=== PATIENT | female | born 1970 | race Caucasian/White ===

== ENCOUNTER 2023-10-24 14:37 | Emergency (ER) | payer MEDICAID, MEDICARE ==
[~2023-10-24] VITALS: Ht 142.2 cm; Wt 56.8 kg
[2023-10-24 14:53] VITALS: BP 95/62; PULSE 80; RESP 12; TEMP 97.8
[2023-10-24] MEDS ORDERED: ACET-66 PO (17:05)
[2023-10-24] MEDS ORDERED: CEPH-558 PO (17:05)
[2023-10-24] MEDS: CEPHALEXIN MONOHYDRATE 500 MG CAPSULE PO ONE (17:14)
== END 2023-10-24 17:26 | disposition home or self-care (01) ==
LOC: EMS 14:37
DX: L03.113 Cellulitis of right upper limb (principal); R56.9 Unspecified convulsions; Q90.9 Down syndrome, unspecified
CPT/HCPCS: 99283

== ENCOUNTER 2024-01-18 11:13 | Inpatient (IN) | payer MEDICARE ==
[~2024-01-18] VITALS: Ht 167.6 cm; Wt 49.2 kg
[~2024-01-18 11:13] MED LIST: ACET-66 PO; CEPH-558 PO
[2024-01-18] MEDS: LORazepam 2 MG/ML VIAL IM ONE (14:45)
[2024-01-18] MEDS: HALOPERIDOL LACTATE 5 MG/ML VIAL IM ONE (14:46)
[2024-01-18] MEDS: DiphenhydrAMINE HCL 50 MG/ML VIAL IM ONE (14:46)
[2024-01-18 16:40] LABS: PH,URINE DRUG SCREEN 5.5 (5.0-8.0)
[2024-01-18 16:44] LABS: ALCOHOL, URINE DRUG SCREEN NEGATIVE (NEGATIVE); AMPHET/METH SCREEN,URINE POSITIVE (NEGATIVE); BARBITURATE SCREEN, URINE NEGATIVE (NEGATIVE); BENZODIAZEPINES SCREEN,URINE POSITIVE (NEGATIVE); CANNABINOID SCREEN,URINE NEGATIVE (NEGATIVE); COCAINE SCREEN,URINE NEGATIVE (NEGATIVE); METHADONE SCREEN, URINE NEGATIVE (NEGATIVE); OPIATE SCREEN,URINE NEGATIVE (NEGATIVE); PHENCYCLIDINE SCREEN,URINE NEGATIVE (NEGATIVE)
[2024-01-18 17:08] LABS: BASOPHILS % (AUTO) 0.7 % (0.0-2.0); EOSINOPHILS % (AUTO) 0.8 % (1.0-6.0); HEMATOCRIT 35.3 % (36-46); HEMOGLOBIN 11.6 g/dL (12.0-16.0); LYMPHOCYTES % (AUTO) 10.1 % (22.0-44.0); MEAN CORPUSCULAR HEMOGLOBIN 33.3 pg (26.0-34.0); MEAN CORPUSCULAR HGB CONC 32.9 G/dL (31.0-37.0); MEAN CORPUSCULAR VOLUME 101 fL (80-100); MONOCYTES # (AUTO) 0.7 K/uL (0.1-1.0); NEUTROPHILS # (AUTO) 8.2 K/uL (1.8-7.7); NEUTROPHILS % (AUTO) 81.4 % (40.0-70.0); PLATELET COUNT (AUTO) 284 K/uL (150-450); RED BLOOD CELL COUNT(AUTO) 3.48 MIL/uL (4.00-5.20); RED CELL DISTRIBUTION WIDTH 13.1 % (11.5-14.5); WHITE BLOOD COUNT (AUTO) 10.1 K/uL (4.5-11.0)
[2024-01-18 17:10] LABS: COVID AG,FIA SOURCE NASAL SWAB
[2024-01-18 17:18] LABS: CALCIUM, TOTAL 8.3 mg/dL (8.8-10.5); CREATININE 1.12 mg/dL (0.60-1.30); POTASSIUM 3.4 mmol/L (3.5-5.1)
[2024-01-18 17:28] LABS: SARS-COV2 (COVID) ANTIGEN,FIA Negative (Negative)
[2024-01-18 17:48] LABS: APPEARANCE,URINE TURBID (CLEAR); BILIRUBIN,URINE NEGATIVE (NEGATIVE); COLOR,URINE ORANGE (YELLOW); GLUCOSE, URINE (UA) NEGATIVE (NEGATIVE); KETONES,URINE NEGATIVE (NEGATIVE); LEUKOCYTE ESTERASE ,URINE NEGATIVE (NEGATIVE); NITRATE,URINE NEGATIVE (NEGATIVE); OCCULT BLOOD,URINE NEGATIVE (NEGATIVE); PH,URINE 5.5 (5.0-8.0); PROTEIN,URINE 30-70 mg/dL (NEGATIVE); SPECIFIC GRAVITIY, URINE 1.028 (1.003-1.030); UROBILINOGEN,URINE <=1.0 mg/dL (<=1.0)
[2024-01-18] MEDS ORDERED: SIMV-260 PO (18:55)
[2024-01-18] MEDS ORDERED: POLY17PO47 PO (18:55)
[2024-01-18] MEDS ORDERED: MELA5TAB40 PO (18:55)
[2024-01-18] MEDS ORDERED: ALPR-707 PO (18:55)
[2024-01-18] MEDS ORDERED: QUET300T5 PO (18:55)
[2024-01-18] MEDS ORDERED: MEMA5TAB41 PO (18:55)
[2024-01-18] MEDS ORDERED: DONE-52 PO (18:55)
[2024-01-18] MEDS ORDERED: GABA-1181 PO (18:55)
[2024-01-18] MEDS ORDERED: BRIV50TA PO (18:58)
[2024-01-18] MEDS ORDERED: LORazepam 2 MG TABLET PO PRN (23:45)
[2024-01-19] MEDS: LORazepam 2 MG/ML VIAL IM ONE ×2 (03:51→04:48)
[2024-01-19] MEDS: DiphenhydrAMINE HCL 50 MG/ML VIAL IM ONE ×2 (03:51→04:48)
[2024-01-19] MEDS: HALOPERIDOL LACTATE 5 MG/ML VIAL IM ONE (04:48)
[2024-01-19 04:53] VITALS: BP 114/64; PULSE 100; RESP 16; TEMP 97.1; O2SAT 100
[2024-01-19] MEDS ORDERED: BENZOCAINE/MENTHOL LOZENGE PO PRN (07:15)
[2024-01-19] MEDS ORDERED: BACITRACIN 28 GM OINTMENT TP PRN (07:15)
[2024-01-19] MEDS ORDERED: ONDANSETRON 4 MG TABLET PO PRN (07:15)
[2024-01-19] MEDS ORDERED: CloNIDine HCL 0.1 MG TABLET PO PRN (07:15)
[2024-01-19] MEDS ORDERED: LOPERAMIDE HCL 2 MG CAPSULE PO PRN (07:15)
[2024-01-19] MEDS ORDERED: DOCUSATE SODIUM 100 MG CAPSULE PO PRN (07:15)
[2024-01-19] MEDS ORDERED: PETROLATUM,WHITE 28 GM JELLY TP PRN (07:15)
[2024-01-19] MEDS ORDERED: MAG HYDROX/ALUMINUM HYD/SIMETH ES 30 ML SUSPENSION UDCUP PO PRN (07:15)
[2024-01-19] MEDS ORDERED: ACETAMINOPHEN 325 MG TABLET PO PRN (07:15)
[2024-01-19] MEDS ORDERED: MAGNESIUM HYDROXIDE SUSPENSION 30 ML UDCUP PO PRN (07:15)
[2024-01-19] MEDS ORDERED: MELATONIN 5 MG TABLET PO PRN (07:15)
[2024-01-19] MEDS ORDERED: ALBUTEROL SULFATE HFA 90 MCG/PUFF 8 GM INHALER IH PRN (07:15)
[2024-01-19] MEDS ORDERED: OMEPRAZOLE 20 MG CAPSULE PO PRN (07:15)
[2024-01-19 08:20] VITALS: RESP 16
[2024-01-19] MEDS: POTASSIUM CHLORIDE 20 MEQ ER TABLET PO ONE (08:35)
[2024-01-19] MEDS: GABAPENTIN 300 MG CAPSULE PO SCH (08:36)
[2024-01-19] MEDS: SIMVASTATIN 20 MG TABLET PO SCH (08:36)
[2024-01-19] MEDS: MEMANTINE HCL 5 MG TABLET PO SCH (09:00)
[2024-01-19] MEDS ORDERED: [UNRECOGNIZED DRUG - OTHER] PO SCH (09:00)
[2024-01-19 16:30] VITALS: BP 138/83; PULSE 89; RESP 18; TEMP 97.8; O2SAT 97
[2024-01-19 20:16] LABS: GLUCOMETER DEV NAME(LOC) BV2X.3; GLUCOSE,POINT OF CARE 87 MG/DL (70-110)
[2024-01-19] MEDS: DONEPEZIL HCL 5 MG TABLET PO SCH (20:31)
[2024-01-19 20:57] VITALS: BP 116/69; PULSE 85; RESP 16; TEMP 97.3; O2SAT 95
[2024-01-20] MEDS: IBUPROFEN 600 MG TABLET PO PRN (07:25)
[2024-01-20 07:27] VITALS: BP 125/63; PULSE 93; RESP 18; TEMP 97.7; O2SAT 99
[2024-01-20 08:26] VITALS: RESP 17
[2024-01-20] MEDS: HALOPERIDOL 5 MG TABLET PO PRN (08:28)
[2024-01-20] MEDS: LORazepam 2 MG TABLET PO PRN (08:28)
[2024-01-20] MEDS: CloNIDine HCL 0.1 MG TABLET PO SCH (08:29)
[2024-01-20] MEDS: GABAPENTIN 300 MG CAPSULE PO SCH (08:55)
[2024-01-20] MEDS ORDERED: LORazepam 2 MG/ML VIAL ONE (19:08)
[2024-01-20] MEDS: ChlorproMAZINE HCL 50 MG/2 ML AMP IM ONE (19:38)
[2024-01-20] MEDS: DiphenhydrAMINE HCL 50 MG/ML VIAL IM ONE (19:38)
[2024-01-20] MEDS: LORazepam 2 MG/ML VIAL IM ONE (19:38)
[2024-01-20 20:09] VITALS: BP 91/56; PULSE 91; RESP 18; TEMP 98.2; O2SAT 96
[2024-01-20] MEDS: QUEtiapine FUMARATE 200 MG TABLET PO SCH (21:00)
[2024-01-20] MEDS: DOCUSATE SODIUM 100 MG CAPSULE PO SCH (21:00)
[2024-01-20] MEDS: DONEPEZIL HCL 5 MG TABLET PO SCH (21:00)
[2024-01-20] MEDS: MELATONIN 5 MG TABLET PO SCH (21:00)
[2024-01-21 00:14] VITALS: BP 140/80; PULSE 66; RESP 18; TEMP 97.5; O2SAT 100
[2024-01-21 09:26] VITALS: RESP 18; TEMP 98
[2024-01-21] MEDS: VALPROIC ACID 250 MG/5 ML SOLUTION UDCUP PO SCH (10:37)
[2024-01-21 16:04] VITALS: BP 96/59; PULSE 77; RESP 18; TEMP 98.2; O2SAT 96
[2024-01-21 20:35] VITALS: RESP 18; O2SAT 98
[2024-01-22] MEDS: LORazepam 1 MG TABLET PO PRN (08:23)
[2024-01-22 10:31] VITALS: BP 99/68; PULSE 78; RESP 18; TEMP 98; O2SAT 96
[2024-01-22 12:25] LABS: APPEARANCE,URINE HAZY (CLEAR); BILIRUBIN,URINE NEGATIVE (NEGATIVE); COLOR,URINE YELLOW (YELLOW); GLUCOSE, URINE (UA) NEGATIVE (NEGATIVE); LEUKOCYTE ESTERASE ,URINE TRACE (NEGATIVE); NITRATE,URINE NEGATIVE (NEGATIVE); OCCULT BLOOD,URINE NEGATIVE (NEGATIVE); PROTEIN,URINE 30-70 mg/dL (NEGATIVE); SPECIFIC GRAVITIY, URINE 1.026 (1.003-1.030)
[2024-01-22 13:01] LABS: BACTERIA,URINE Many /HPF (None Seen); RBC,URINE 0-2 /HPF (0-2); SQUAMOUS EPITHELIAL CELL,UR Moderate /LPF (None Seen); WBC,URINE 0-2 /HPF (0-5)
[2024-01-22] MEDS: CEPHALEXIN MONOHYDRATE 500 MG CAPSULE PO SCH (17:45)
[2024-01-22 20:02] VITALS: BP 101/62; PULSE 68; RESP 18; TEMP 97.4; O2SAT 98
[2024-01-22] MEDS: ZOLPIDEM TARTRATE 10 MG TABLET PO PRN (21:35)
[2024-01-23 11:37] VITALS: BP 110/70; PULSE 76; RESP 18; TEMP 97.6; O2SAT 92
[2024-01-23 20:37] VITALS: BP 114/76; PULSE 96; RESP 18; TEMP 97.6; O2SAT 98
[2024-01-23] MEDS: VALPROIC ACID 250 MG/5 ML SOLUTION UDCUP PO SCH (21:00)
[2024-01-23] MEDS: MEMANTINE HCL 10 MG TABLET PO SCH (21:00)
[2024-01-23] MEDS: DONEPEZIL HCL 10 MG TABLET PO SCH (21:00)
[2024-01-24 08:30] VITALS: BP 100/68; PULSE 78; RESP 18; TEMP 97.5; O2SAT 98
[2024-01-24] MEDS ORDERED: GABAPENTIN 300 MG CAPSULE PO SCH (09:00)
[2024-01-24] MEDS: GABAPENTIN 300 MG CAPSULE PO SCH ×2 (10:38→21:00)
[2024-01-24] MEDS: VALPROIC ACID 250 MG/5 ML SOLUTION UDCUP PO SCH (10:40)
[2024-01-24] MEDS ORDERED: ALEN70TA80 PO (11:32)
[2024-01-24 21:47] VITALS: BP 105/71; PULSE 74; RESP 18; TEMP 97.7; O2SAT 98
[2024-01-25 08:35] VITALS: BP 97/57; PULSE 79; RESP 17; O2SAT 98
[2024-01-25 22:19] VITALS: TEMP 97.5
[2024-01-26 09:10] VITALS: TEMP 98
[2024-01-26] MEDS: QUEtiapine FUMARATE 25 MG TABLET PO SCH (09:46)
[2024-01-26 20:31] VITALS: TEMP 97.4
[2024-01-27 11:11] VITALS: BP 113/54; PULSE 74; RESP 18; TEMP 97.5; O2SAT 97
[2024-01-27 22:23] VITALS: BP 93/59; PULSE 81; RESP 18; TEMP 98.4; O2SAT 98
[2024-01-28 11:24] VITALS: BP 97/65; PULSE 69; RESP 18; TEMP 97.8; O2SAT 99
[2024-01-28] MEDS ORDERED: MELA5TAB40 PO (17:13)
[2024-01-28] MEDS ORDERED: MEMA10TA24 PO (17:13)
[2024-01-28] MEDS ORDERED: QUET200T30 PO (17:13)
[2024-01-28] MEDS ORDERED: DONE-51 PO (17:13)
[2024-01-28] MEDS ORDERED: GABA-1181 PO ×2 (17:13→22:25)
[2024-01-28] MEDS ORDERED: VALP250S23 PO ×2 (17:13)
[2024-01-28 18:40] LABS: GLUCOMETER DEV NAME(LOC) 3E.I 2; GLUCOSE,POINT OF CARE 134 MG/DL (70-110)
[2024-01-28] MEDS ORDERED: PROPOFOL 1000 MG/ISO-OSM 100 ML ONE (18:44)
[2024-01-28] MEDS: NOREPINEPHRINE 8 MG/0.9 % NACL 250 ML IV PRN (19:07)
[2024-01-28] MEDS: PROPOFOL 1000 MG/ISO-OSM 100 ML IV PRN (19:08)
[2024-01-28 19:26] LABS: ABG BASE EXCESS -6.4 mmol/L (-2.0-3.0); ABG CARBOXYHEMOGLOBIN 0.3 % (0.5-1.5); ABG HCO3 19.4 mmol/L (21.0-28.0); ABG METHEMOGLOBIN 0.9 % (0.0-1.5); ABG OXYGEN CONTENT 15.9 mL/dL (15.0-23.0); ABG OXYGEN SATURATION 99.4 % (94.0-98.0); ABG OXYHEMOGLOBIN 98.2 % (94.0-98.0); ABG PCO2 45 mmHg (32.0-45.0); ABG PH 7.275 (7.350-7.450); ABG TOTAL HEMOGLOBIN 11.2 G/dL (12.0-16.0); SOURCE, BLOOD GAS ARTERIAL; TEMPERATURE, FAHRENHEIT, BG 98.6 FAHREN (96.0-98.6)
[2024-01-28 19:27] LABS: ALLEN TEST, BLOOD GAS Positive; O2 DEVICE,BLOOD GAS VENTILATOR (ROOM AIR); PEEP,BG 5 cm H2O; PO2, ARTERIAL BG 187.2 mmHg (83.0-108.0); SITE, BLOOD GAS RT RADIAL; VT, ABG 350 ml
[2024-01-28 19:28] LABS: EOSINOPHILS % (AUTO) 0.2 % (1.0-6.0); HEMATOCRIT 38.3 % (36-46); HEMOGLOBIN 11.8 g/dL (12.0-16.0); LYMPHOCYTES # (AUTO) 3.3 K/uL (1.0-4.8); LYMPHOCYTES % (AUTO) 21.2 % (22.0-44.0); MEAN CORPUSCULAR HEMOGLOBIN 32.3 pg (26.0-34.0); MEAN CORPUSCULAR HGB CONC 30.8 G/dL (31.0-37.0); MEAN CORPUSCULAR VOLUME 105 fL (80-100); MONOCYTES # (AUTO) 0.6 K/uL (0.1-1.0); MONOCYTES % (AUTO) 3.5 % (2.0-9.0); NEUTROPHILS # (AUTO) 11.6 K/uL (1.8-7.7); NEUTROPHILS % (AUTO) 74.1 % (40.0-70.0); PLATELET COUNT (AUTO) 231 K/uL (150-450); RED BLOOD CELL COUNT(AUTO) 3.65 MIL/uL (4.00-5.20); RED CELL DISTRIBUTION WIDTH 14.1 % (11.5-14.5); WHITE BLOOD COUNT (AUTO) 15.6 K/uL (4.5-11.0)
[2024-01-28 19:37] VITALS: PULSE 94; RESP 19; O2SAT 99
[2024-01-28 19:38] VITALS: PULSE 94; RESP 19; O2SAT 99
[2024-01-28 19:46] LABS: CALCIUM, TOTAL 8.5 mg/dL (8.8-10.5); CREATININE 1.47 mg/dL (0.60-1.30)
[2024-01-28 19:47] LABS: B-TYPE NATRIURETIC PEPTIDE < 5 pg/mL (0-100); LACTIC ACID 6.7 mmol/L (0.4-2.0)
[2024-01-28 19:48] LABS: TROPONIN I-HIGH SENSITIVITY 102 ng/L (<51)
[2024-01-28] MEDS: SODIUM CHLORIDE 0.9% 1,000 ML IV ONE (19:54)
[2024-01-28 19:55] LABS: LIPASE 21 U/L (16-77)
[2024-01-28] MEDS ORDERED: FentaNYL CIT 1000MCG/0.9% NACL 100 ML IV PRN ×2 (20:15→21:15)
[2024-01-28] MEDS ORDERED: VECURONIUM BROMIDE 10 MG/VIAL IVP ONE (20:15)
[2024-01-28] MEDS ORDERED: RINGERS SOLUTION,LACTATED 1,500 ML IV ONE (21:15)
[2024-01-28] MEDS ORDERED: ACETAMINOPHEN 325 MG TABLET PO PRN (21:15)
[2024-01-28] MEDS ORDERED: MIDAZOLAM HCL 2 MG/2 ML VIAL IVP PRN (21:15)
[2024-01-28] MEDS ORDERED: LORazepam 2 MG/ML VIAL IVP PRN (21:15)
[2024-01-28] MEDS ORDERED: IPRATROPIUM BROMIDE 0.5 MG/2.5 ML NEB SOLUTION NEB PRN (21:15)
[2024-01-28] MEDS ORDERED: ALBUTEROL SULFATE 2.5 MG/0.5 ML NEB SOLUTION NEB PRN (21:15)
[2024-01-28 21:35] VITALS: BP 139/84; PULSE 81; RESP 18; TEMP 97.4; O2SAT 100
[2024-01-28 21:36] LABS: MAGNESIUM 2.8 mg/dL (1.80-2.40)
[2024-01-28] MEDS ORDERED: CHLORHEXIDINE GLUCONATE 2% TOWELETTE [2'S/6'S] TP SCH (22:00)
[2024-01-28] MEDS ORDERED: PIPERACILLIN/TAZO 3.375 GM/D5W 50 ML IV SCH (22:00)
[2024-01-28] MEDS ORDERED: INSULIN LISPRO 100 UNITS/ML SQ PRN (22:00)
[2024-01-28] MEDS ORDERED: DEXTROSE 50%-WATER 25 GM/50 ML SYRINGE IVP PRN (22:00)
[2024-01-29] MEDS ORDERED: VALPROIC ACID 250 MG/5 ML SOLUTION UDCUP PO SCH (09:00)
[2024-01-30] MEDS ORDERED: HEPARIN SODIUM,PORCINE 5,000 UNITS/ML VIAL SQ SCH
== END 2024-01-28 18:30 | disposition short-term general hospital (02) | DRG 885 ==
LOC: EMS 11:13 → B3A 01-19 04:17 → B2X 01-19 10:35 → 3EX 01-21 00:35
PROVIDERS: ADMIT Psychiatry & Neurology Psychiatry; ATTEND Psychiatry & Neurology Psychiatry
PROC: GZ56ZZZ Individual Psychotherapy, Supportive (ICD-10-PCS; principal; 2024-01-25)
DX: F20.9 Schizophrenia, unspecified (principal); N17.9 Acute kidney failure, unspecified; F70 Mild intellectual disabilities; I46.9 Cardiac arrest, cause unspecified; F29 Unspecified psychosis not due to a substance or known physiological condition; F41.9 Anxiety disorder, unspecified; G47.00 Insomnia, unspecified; R62.50 Unspecified lack of expected normal physiological development in childhood; E78.5 Hyperlipidemia, unspecified; K59.00 Constipation, unspecified; Z20.822 Contact with and (suspected) exposure to COVID-19; E87.6 Hypokalemia; Q90.9 Down syndrome, unspecified; F32.A Depression, unspecified; K42.9 Umbilical hernia without obstruction or gangrene; F15.10 Other stimulant abuse, uncomplicated; F90.9 Attention-deficit hyperactivity disorder, unspecified type; Z91.199 Patient's noncompliance with other medical treatment and regimen due to unspecified reason; Z79.899 Other long term (current) drug therapy
CPT/HCPCS: 36600; 51701; 51702; 70450; 71045; 74176; 80048; 80164; 80307; 81001; 81003; 82805; 82962; 83605; 83690; 83735; 83880; 84132; 84145; 84484; 85025; 85379; 87040; 87086; 87186; 92610; 93005; 94002; 99285; G0378; G0480; J1200; J1630; J2060; J2704; J3010; J3230; J3490; J7030; 36415-L1; 36415-TC

== ENCOUNTER 2024-01-28 21:48 | Inpatient (IN) | payer MEDICARE ==
[~2024-01-28] VITALS: Ht 167.6 cm; Wt 58.6 kg
[2024-01-28 19:00] VITALS: PULSE 88; RESP 19; O2SAT 100; O2SAT 99
[~2024-01-28 21:48] MED LIST changes: +ALEN70TA80 PO; +ALPR-707 PO; +BRIV50TA PO; -CEPH-558 PO; +DONE-51 PO; +DONE-52 PO; +GABA-1181 PO; +MELA5TAB40 PO; +MEMA10TA24 PO; +MEMA5TAB41 PO; +POLY17PO47 PO; +QUET200T30 PO; +QUET300T5 PO; +SIMV-260 PO; +VALP250S23 PO
[2024-01-28] MEDS ORDERED: GABA-1181 PO (22:25)
[2024-01-28] MEDS ORDERED: MELATONIN 5 MG TABLET PO PRN ×2 (22:30)
[2024-01-28] MEDS ORDERED: ALBUTEROL SULFATE 2.5 MG/0.5 ML NEB SOLUTION NEB PRN (22:30)
[2024-01-28] MEDS ORDERED: MIDAZOLAM HCL 100 MG in SODIUM CHLORIDE 0.9% 180 ML IV PRN (22:30)
[2024-01-28] MEDS ORDERED: IPRATROPIUM BROMIDE 0.5 MG/2.5 ML NEB SOLUTION NEB PRN (22:30)
[2024-01-28] MEDS ORDERED: ASPIRIN 300 MG RECTAL SUPPOSITORY PR ONE (22:45)
[2024-01-28] MEDS ORDERED: PROPOFOL 1000 MG/ISO-OSM 100 ML ONE (22:45)
[2024-01-28 22:50] VITALS: PULSE 101; RESP 18; O2SAT 100
[2024-01-28] MEDS ORDERED: SODIUM CHLORIDE 0.9% 100 ML ONE (22:58)
[2024-01-28] MEDS ORDERED: IOHEXOL 350 MG/ML 100 ML VIAL ONE (22:59)
[2024-01-29] VITALS (14 sets, daily range): BP systolic 85–176; BP diastolic 42–79; PULSE 59–111; RESP 14–29; TEMP 91.5–97.5; O2SAT 84–100
[2024-01-29] MEDS ORDERED: HEPARIN SODIUM,PORCINE 5,000 UNITS/ML VIAL SQ SCH
[2024-01-29] MEDS ORDERED: SODIUM CHLORIDE 0.9% 250 ML IV ONE (00:35)
[2024-01-29 00:36] LABS: BASOPHILS % (AUTO) 0.1 % (0.0-2.0); EOSINOPHILS % (AUTO) 0.1 % (1.0-6.0); HEMATOCRIT 42.9 % (36-46); HEMOGLOBIN 13.4 g/dL (12.0-16.0); LYMPHOCYTES # (AUTO) 1.1 K/uL (1.0-4.8); LYMPHOCYTES % (AUTO) 5.4 % (22.0-44.0); MEAN CORPUSCULAR HEMOGLOBIN 32.1 pg (26.0-34.0); MEAN CORPUSCULAR HGB CONC 31.1 G/dL (31.0-37.0); MEAN CORPUSCULAR VOLUME 103 fL (80-100); MONOCYTES # (AUTO) 1.6 K/uL (0.1-1.0); MONOCYTES % (AUTO) 7.8 % (2.0-9.0); NEUTROPHILS # (AUTO) 18.1 K/uL (1.8-7.7); PLATELET COUNT (AUTO) 320 K/uL (150-450); RED BLOOD CELL COUNT(AUTO) 4.16 MIL/uL (4.00-5.20); RED CELL DISTRIBUTION WIDTH 13.8 % (11.5-14.5); WHITE BLOOD COUNT (AUTO) 20.9 K/uL (4.5-11.0)
[2024-01-29 00:37] LABS: NEUTROPHILS % (AUTO) 86.6 % (40.0-70.0)
[2024-01-29] MEDS: RINGERS SOLUTION,LACTATED 1,550 ML IV ONE (00:43)
[2024-01-29] MEDS: LevETIRAcetam 1,000 MG in DEXTROSE 5%-WATER 100 ML IV ONE (00:44)
[2024-01-29 00:51] LABS: INR 1.1 (0.9-1.1); PROTHROMBIN TIME 11.8 SEC (9.4-11.6)
[2024-01-29 01:20] LABS: TROPONIN I-HIGH SENSITIVITY 10654 ng/L (<51)
[2024-01-29] MEDS: PIPERACILLIN/TAZO 3.375 GM/D5W 50 ML IV SCH (01:37)
[2024-01-29] MEDS: ETHYL ALCOHOL 62% ANTISEPTIC NASAL SANITIZER 0.6 ML AMPUL NASAL SCH (01:38)
[2024-01-29] MEDS: CHLORHEXIDINE GLUCONATE 0.12% 15 ML UDCUP ORAL RINSE MM SCH (01:38)
[2024-01-29] MEDS: PANTOPRAZOLE SODIUM 80 MG in SODIUM CHLORIDE 0.9% 100 ML IV SCH (01:38)
[2024-01-29] MEDS: HEPARIN SODIUM,PORCINE 5,000 UNITS/ML VIAL IVP ONE (02:02)
[2024-01-29] MEDS: HEPARIN SODIUM 25000 UNITS/D5W 250 ML IV PRN (02:08)
[2024-01-29] MEDS: NOREPINEPHRINE 8 MG/0.9 % NACL 250 ML IV PRN (03:53)
[2024-01-29 04:24] LABS: RBC MORPHOLOGY COMMENT ABNORMAL RBC MORPH
[2024-01-29 05:38] LABS: ABG BASE EXCESS -1.9 mmol/L (-2.0-3.0); ABG METHEMOGLOBIN 0.3 % (0.0-1.5); ABG OXYGEN CONTENT 18.5 mL/dL (15.0-23.0); ABG OXYGEN SATURATION 98.2 % (94.0-98.0); ABG OXYHEMOGLOBIN 97.9 % (94.0-98.0); ABG PCO2 56 mmHg (32.0-45.0); ABG PH 7.267 (7.350-7.450); ABG TOTAL HEMOGLOBIN 13.3 G/dL (12.0-16.0); SOURCE, BLOOD GAS ARTERIAL; TEMPERATURE, FAHRENHEIT, BG 93.2 FAHREN (96.0-98.6)
[2024-01-29 05:39] LABS: ALLEN TEST, BLOOD GAS Positive; O2 DEVICE,BLOOD GAS VENTILATOR (ROOM AIR); PO2, ARTERIAL BG 120.8 mmHg (83.0-108.0); SITE, BLOOD GAS RT RADIAL
[2024-01-29 05:40] LABS: PEEP,BG 5 cm H2O; VT, ABG 350 ml
[2024-01-29] MEDS: ALENDRONATE SODIUM 70 MG TABLET PO SCH (05:48)
[2024-01-29 07:17] LABS: ALBUMIN 2.3 g/dL (3.4-5.0); BILIRUBIN,TOTAL 0.3 mg/dL (0.1-1.0); CREATININE 1.08 mg/dL (0.60-1.30); PHOSPHORUS 4.4 mg/dL (2.5-4.9); POTASSIUM 5.8 mmol/L (3.5-5.1); TOTAL PROTEIN, SERUM 6.8 g/dL (6.4-8.2)
[2024-01-29 07:22] LABS: TROPONIN I-HIGH SENSITIVITY 9462 ng/L (<51)
[2024-01-29] MEDS: FentaNYL CIT 1000MCG/0.9% NACL 100 ML IV PRN (08:10)
[2024-01-29] MEDS: DEXTROSE 50%-WATER 25 GM/50 ML SYRINGE IVP ONE ×2 (08:47→12:31)
[2024-01-29] MEDS: INSULIN REGULAR, HUMAN 100 UNITS/ML IVP ONE (08:48)
[2024-01-29] MEDS ORDERED: [UNRECOGNIZED DRUG - OTHER] PO SCH (09:00)
[2024-01-29] MEDS: VALPROIC ACID 250 MG/5 ML SOLUTION UDCUP PO SCH (09:00)
[2024-01-29] MEDS: GABAPENTIN 300 MG CAPSULE PO SCH (09:00)
[2024-01-29] MEDS ORDERED: MEMANTINE HCL 5 MG TABLET PO SCH (09:00)
[2024-01-29] MEDS: LevETIRAcetam 500 MG TABLET PO SCH (09:00)
[2024-01-29] MEDS: MEMANTINE HCL 10 MG TABLET PO SCH (09:00)
[2024-01-29] MEDS: POLYETHYLENE GLYCOL 3350 17 GM PACKET PO SCH (09:23)
[2024-01-29] MEDS: SIMVASTATIN 20 MG TABLET PO SCH (09:23)
[2024-01-29] MEDS: LevETIRAcetam 1,000 MG in DEXTROSE 5%-WATER 100 ML IV SCH (10:12)
[2024-01-29 10:21] LABS: GLUCOMETER DEV NAME(LOC) ICUN.5; GLUCOSE,POINT OF CARE 94 MG/DL (70-110)
[2024-01-29] MEDS: VALPROATE SODIUM 750 MG in DEXTROSE 5%-WATER 100 ML IV SCH (11:36)
[2024-01-29 11:49] LABS: BASOPHILS % (AUTO) 0.2 % (0.0-2.0); EOSINOPHILS % (AUTO) 0.2 % (1.0-6.0); HEMOGLOBIN 11.8 g/dL (12.0-16.0); LYMPHOCYTES # (AUTO) 1.7 K/uL (1.0-4.8); LYMPHOCYTES % (AUTO) 12.1 % (22.0-44.0); MEAN CORPUSCULAR HEMOGLOBIN 32.3 pg (26.0-34.0); MEAN CORPUSCULAR HGB CONC 31.8 G/dL (31.0-37.0); MEAN CORPUSCULAR VOLUME 102 fL (80-100); MONOCYTES % (AUTO) 7.1 % (2.0-9.0); NEUTROPHILS # (AUTO) 11.2 K/uL (1.8-7.7); NEUTROPHILS % (AUTO) 80.4 % (40.0-70.0); PLATELET COUNT (AUTO) 245 K/uL (150-450); RED BLOOD CELL COUNT(AUTO) 3.65 MIL/uL (4.00-5.20); RED CELL DISTRIBUTION WIDTH 13.2 % (11.5-14.5); WHITE BLOOD COUNT (AUTO) 13.9 K/uL (4.5-11.0)
[2024-01-29 11:52] LABS: ABG BASE EXCESS -1.6 mmol/L (-2.0-3.0); ABG CARBOXYHEMOGLOBIN 0.1 % (0.5-1.5); ABG HCO3 22.2 mmol/L (21.0-28.0); ABG METHEMOGLOBIN 0.3 % (0.0-1.5); ABG OXYGEN SATURATION 98.8 % (94.0-98.0); ABG OXYHEMOGLOBIN 98.4 % (94.0-98.0); ABG PCO2 55 mmHg (32.0-45.0); ABG PH 7.271 (7.350-7.450); ABG TOTAL HEMOGLOBIN 12.8 G/dL (12.0-16.0); SOURCE, BLOOD GAS ARTERIAL
[2024-01-29 11:53] LABS: ALLEN TEST, BLOOD GAS Positive; SITE, BLOOD GAS LFT RADIAL
[2024-01-29 11:54] LABS: ABG A-A DIFF O2 48.4 mmHg (10-20.0); O2 DEVICE,BLOOD GAS VENTILATOR (ROOM AIR); PEEP,BG 5 cm H2O; VT, ABG 350 ml
[2024-01-29 12:04] LABS: ALANINE AMINOTRANSFERASE 89 U/L (12-78); ALBUMIN 2.1 g/dL (3.4-5.0); ALKALINE PHOSPHATASE 87 U/L (46-116); ANION GAP 9 mmol/L (8-16); ASPARTATE AMINOTRANSFERASE 107 U/L (15-37); BILIRUBIN,TOTAL 0.4 mg/dL (0.1-1.0); CALCIUM, TOTAL 7.6 mg/dL (8.8-10.5); CARBON DIOXIDE 30 mmol/L (22-29); CHLORIDE 105 mmol/L (98-107); CREATININE 0.81 mg/dL (0.60-1.30); GLOMERULAR FILTR. RATE CALC > 60 mL/min (>60); GLUCOSE,RANDOM 68 mg/dL (70-110); POTASSIUM 4.7 mmol/L (3.5-5.1); SODIUM SERUM 144 mmol/L (136-145); TOTAL PROTEIN, SERUM 6.2 g/dL (6.4-8.2); UREA NITROGEN, BLOOD 14 mg/dL (7-18)
[2024-01-29 13:55] LABS: TROPONIN I-HIGH SENSITIVITY 3284 ng/L (<51)
[2024-01-29 14:14] LABS: APPEARANCE,URINE CLEAR (CLEAR); BILIRUBIN,URINE NEGATIVE (NEGATIVE); COLOR,URINE LIGHT YELLOW (YELLOW); GLUCOSE, URINE (UA) >=1000 mg/dL (NEGATIVE); KETONES,URINE NEGATIVE (NEGATIVE); LEUKOCYTE ESTERASE ,URINE NEGATIVE (NEGATIVE); NITRATE,URINE NEGATIVE (NEGATIVE); OCCULT BLOOD,URINE NEGATIVE (NEGATIVE); PROTEIN,URINE 30-70 mg/dL (NEGATIVE); UROBILINOGEN,URINE <=1.0 mg/dL (<=1.0)
[2024-01-29 14:18] LABS: SPECIFIC GRAVITIY, URINE > 1.030 (1.003-1.030)
[2024-01-29 14:24] LABS: BACTERIA,URINE None Seen /HPF (None Seen); RBC,URINE None Seen /HPF (0-2); SQUAMOUS EPITHELIAL CELL,UR Few /LPF (None Seen); WBC,URINE 0-2 /HPF (0-5)
[2024-01-29 17:01] LABS: BASOPHILS % (AUTO) 0.9 % (0.0-2.0); EOSINOPHILS % (AUTO) 0.1 % (1.0-6.0); HEMOGLOBIN 12.1 g/dL (12.0-16.0); LYMPHOCYTES # (AUTO) 1.9 K/uL (1.0-4.8); LYMPHOCYTES % (AUTO) 12.5 % (22.0-44.0); MEAN CORPUSCULAR HEMOGLOBIN 31.9 pg (26.0-34.0); MEAN CORPUSCULAR HGB CONC 31.8 G/dL (31.0-37.0); MEAN CORPUSCULAR VOLUME 101 fL (80-100); MONOCYTES # (AUTO) 1.3 K/uL (0.1-1.0); MONOCYTES % (AUTO) 8.4 % (2.0-9.0); NEUTROPHILS % (AUTO) 78.1 % (40.0-70.0); PLATELET COUNT (AUTO) 279 K/uL (150-450); RED BLOOD CELL COUNT(AUTO) 3.78 MIL/uL (4.00-5.20); RED CELL DISTRIBUTION WIDTH 13.1 % (11.5-14.5); WHITE BLOOD COUNT (AUTO) 15.4 K/uL (4.5-11.0)
[2024-01-29 17:38] LABS: ALBUMIN 2.1 g/dL (3.4-5.0); ANION GAP 8 mmol/L (8-16); BILIRUBIN,TOTAL 0.3 mg/dL (0.1-1.0); CALCIUM, TOTAL 7.9 mg/dL (8.8-10.5); CARBON DIOXIDE 27 mmol/L (22-29); CHLORIDE 104 mmol/L (98-107); CREATININE 0.84 mg/dL (0.60-1.30); GLOMERULAR FILTR. RATE CALC > 60 mL/min (>60); GLUCOSE,RANDOM 61 mg/dL (70-110); PHOSPHORUS 3.9 mg/dL (2.5-4.9); POTASSIUM 4.8 mmol/L (3.5-5.1); SODIUM SERUM 139 mmol/L (136-145); TOTAL PROTEIN, SERUM 6.2 g/dL (6.4-8.2); UREA NITROGEN, BLOOD 13 mg/dL (7-18)
[2024-01-29 17:53] LABS: ALANINE AMINOTRANSFERASE 83 U/L (12-78); ALKALINE PHOSPHATASE 92 U/L (46-116); ASPARTATE AMINOTRANSFERASE 88 U/L (15-37)
[2024-01-29] MEDS: DEXTROSE 50%-WATER 25 GM/50 ML SYRINGE IVP PRN (18:26)
[2024-01-29 19:54] LABS: ABG BASE EXCESS -1.4 mmol/L (-2.0-3.0); ABG CARBOXYHEMOGLOBIN 0.1 % (0.5-1.5); ABG HCO3 22.3 mmol/L (21.0-28.0); ABG METHEMOGLOBIN 0.3 % (0.0-1.5); ABG OXYGEN SATURATION 98.7 % (94.0-98.0); ABG OXYHEMOGLOBIN 98.3 % (94.0-98.0); ABG PCO2 58 mmHg (32.0-45.0); ABG PH 7.259 (7.350-7.450); ABG TOTAL HEMOGLOBIN 12.8 G/dL (12.0-16.0); SOURCE, BLOOD GAS ARTERIAL; TEMPERATURE, FAHRENHEIT, BG 93.5 FAHREN (96.0-98.6)
[2024-01-29 19:56] LABS: O2 DEVICE,BLOOD GAS VENTILATOR (ROOM AIR); PEEP,BG 5 cm H2O; PO2, ARTERIAL BG 137.7 mmHg (83.0-108.0); SITE, BLOOD GAS RT BRACHIAL; SPONTANEOUS VT, BG 348 ml; VT, ABG 350 ml
[2024-01-29] MEDS ORDERED: VALPROIC ACID 250 MG/5 ML SOLUTION UDCUP PO SCH (21:00)
[2024-01-29] MEDS ORDERED: DONEPEZIL HCL 5 MG TABLET PO SCH (21:00)
[2024-01-29] MEDS: ASPIRIN 81 MG CHEWABLE TABLET PO SCH (21:00)
[2024-01-29] MEDS: DONEPEZIL HCL 10 MG TABLET PO SCH (21:00)
[2024-01-29] MEDS: VALPROATE SODIUM 1,000 MG in DEXTROSE 5%-WATER 100 ML IV SCH (21:31)
[2024-01-29] MEDS: CHLORHEXIDINE GLUCONATE 2% TOWELETTE [2'S/6'S] TP SCH (21:32)
[2024-01-29 21:55] LABS: GLUCOMETER DEV NAME(LOC) ICU.S6; GLUCOSE,POINT OF CARE 147 MG/DL (70-110)
[2024-01-29 23:32] LABS: ALANINE AMINOTRANSFERASE 79 U/L (12-78); ALKALINE PHOSPHATASE 90 U/L (46-116); ANION GAP 9 mmol/L (8-16); ASPARTATE AMINOTRANSFERASE 106 U/L (15-37); BILIRUBIN,TOTAL 0.4 mg/dL (0.1-1.0); CALCIUM, TOTAL 7.7 mg/dL (8.8-10.5); CARBON DIOXIDE 29 mmol/L (22-29); CHLORIDE 102 mmol/L (98-107); CREATININE 0.87 mg/dL (0.60-1.30); GLOMERULAR FILTR. RATE CALC > 60 mL/min (>60); GLUCOSE,RANDOM 80 mg/dL (70-110); PHOSPHORUS 4.2 mg/dL (2.5-4.9); POTASSIUM 4.9 mmol/L (3.5-5.1); SODIUM SERUM 140 mmol/L (136-145); TOTAL PROTEIN, SERUM 6.2 g/dL (6.4-8.2); UREA NITROGEN, BLOOD 14 mg/dL (7-18)
[2024-01-30] VITALS (15 sets, daily range): BP systolic 90–121; BP diastolic 49–57; PULSE 73–99; RESP 23–29; TEMP 94.9–99; O2SAT 97–100
[2024-01-30 02:18] LABS: ABG BASE EXCESS 1.1 mmol/L (-2.0-3.0); ABG CARBOXYHEMOGLOBIN 0.1 % (0.5-1.5); ABG HCO3 25.3 mmol/L (21.0-28.0); ABG METHEMOGLOBIN 0.3 % (0.0-1.5); ABG OXYGEN CONTENT 16.7 mL/dL (15.0-23.0); ABG OXYGEN SATURATION 98.8 % (94.0-98.0); ABG OXYHEMOGLOBIN 98.4 % (94.0-98.0); ABG PCO2 41 mmHg (32.0-45.0); ABG PH 7.415 (7.350-7.450); ABG TOTAL HEMOGLOBIN 11.9 G/dL (12.0-16.0); SOURCE, BLOOD GAS ARTERIAL; TEMPERATURE, FAHRENHEIT, BG 96.5 FAHREN (96.0-98.6)
[2024-01-30 02:19] LABS: PO2, ARTERIAL BG 131.1 mmHg (83.0-108.0)
[2024-01-30 02:20] LABS: SITE, BLOOD GAS RT BRACHIAL
[2024-01-30 02:21] LABS: ABG A-A DIFF O2 35.6 mmHg (10-20.0); O2 DEVICE,BLOOD GAS VENTILATOR (ROOM AIR); PEEP,BG 5 cm H2O; SPONTANEOUS VT, BG 362 ml; VT, ABG 350 ml
[2024-01-30] MEDS ORDERED: LORazepam 2 MG/ML VIAL ONE (05:27)
[2024-01-30] MEDS: LORazepam 2 MG/ML VIAL IVP PRN (05:31)
[2024-01-30 07:14] LABS: BASOPHILS % (AUTO) 0.4 % (0.0-2.0); EOSINOPHILS % (AUTO) 0.2 % (1.0-6.0); HEMATOCRIT 33.4 % (36-46); LYMPHOCYTES # (AUTO) 0.6 K/uL (1.0-4.8); LYMPHOCYTES % (AUTO) 4.6 % (22.0-44.0); MEAN CORPUSCULAR HEMOGLOBIN 32.7 pg (26.0-34.0); MEAN CORPUSCULAR HGB CONC 33.1 G/dL (31.0-37.0); MEAN CORPUSCULAR VOLUME 99 fL (80-100); MONOCYTES # (AUTO) 0.7 K/uL (0.1-1.0); MONOCYTES % (AUTO) 5.3 % (2.0-9.0); PLATELET COUNT (AUTO) 248 K/uL (150-450); RED BLOOD CELL COUNT(AUTO) 3.37 MIL/uL (4.00-5.20); RED CELL DISTRIBUTION WIDTH 12.6 % (11.5-14.5); WHITE BLOOD COUNT (AUTO) 13.4 K/uL (4.5-11.0)
[2024-01-30 07:36] LABS: NEUTROPHILS % (AUTO) 89.5 % (40.0-70.0)
[2024-01-30 07:46] LABS: ALANINE AMINOTRANSFERASE 69 U/L (12-78); ALBUMIN 1.9 g/dL (3.4-5.0); ALKALINE PHOSPHATASE 85 U/L (46-116); ANION GAP 13 mmol/L (8-16); ASPARTATE AMINOTRANSFERASE 126 U/L (15-37); BILIRUBIN,TOTAL 0.4 mg/dL (0.1-1.0); CALCIUM, TOTAL 8.1 mg/dL (8.8-10.5); CARBON DIOXIDE 22 mmol/L (22-29); CHLORIDE 102 mmol/L (98-107); GLOMERULAR FILTR. RATE CALC > 60 mL/min (>60); GLUCOSE,RANDOM 91 mg/dL (70-110); PHOSPHORUS 2.2 mg/dL (2.5-4.9); POTASSIUM 4.2 mmol/L (3.5-5.1); SODIUM SERUM 137 mmol/L (136-145); TOTAL PROTEIN, SERUM 5.8 g/dL (6.4-8.2); UREA NITROGEN, BLOOD 13 mg/dL (7-18)
[2024-01-30] MEDS: HEPARIN SODIUM,PORCINE 5,000 UNITS/ML VIAL IVP PRN (08:09)
[2024-01-30] MEDS ORDERED: RINGERS SOLUTION,LACTATED 500 ML IV ONE (09:15)
[2024-01-30] MEDS: RINGERS SOLUTION,LACTATED 500 ML IV ONE (09:18)
[2024-01-30 10:49] LABS: ABG BASE EXCESS 1.9 mmol/L (-2.0-3.0); ABG CARBOXYHEMOGLOBIN 0.3 % (0.5-1.5); ABG HCO3 25.9 mmol/L (21.0-28.0); ABG METHEMOGLOBIN 0.3 % (0.0-1.5); ABG OXYGEN CONTENT 16.2 mL/dL (15.0-23.0); ABG OXYGEN SATURATION 98.6 % (94.0-98.0); ABG PCO2 43 mmHg (32.0-45.0); ABG PH 7.412 (7.350-7.450); ABG TOTAL HEMOGLOBIN 11.6 G/dL (12.0-16.0); SOURCE, BLOOD GAS ARTERIAL; TEMPERATURE, FAHRENHEIT, BG 98.2 FAHREN (96.0-98.6)
[2024-01-30 10:50] LABS: ABG A-A DIFF O2 33.2 mmHg (10-20.0); ALLEN TEST, BLOOD GAS Positive; O2 DEVICE,BLOOD GAS VENTILATOR (ROOM AIR); PEEP,BG 5 cm H2O; PO2, ARTERIAL BG 130.9 mmHg (83.0-108.0); SITE, BLOOD GAS RT RADIAL; VT, ABG 350 ml
[2024-01-30 11:31] LABS: GLUCOMETER DEV NAME(LOC) ICU.S6; GLUCOSE,POINT OF CARE 116 MG/DL (70-110)
[2024-01-30 11:31] LABS: GLUCOMETER DEV NAME(LOC) ICU.S6; GLUCOSE,POINT OF CARE 63 MG/DL (70-110)
[2024-01-30] MEDS: DEXTROSE 5%-LACTATED RINGERS 1,000 ML IV ONE (13:12)
[2024-01-30 17:01] LABS: GLUCOMETER DEV NAME(LOC) ICUN.5; GLUCOSE,POINT OF CARE 132 MG/DL (70-110)
[2024-01-30] MEDS: WATER IV ONE (18:11)
[2024-01-30] MEDS: DEXTROSE 5% IV ONE (18:11)
[2024-01-30] MEDS: SODIUM PHOS M BASIC D BASIC IV ONE (18:11)
[2024-01-30 21:30] LABS: GLUCOMETER DEV NAME(LOC) ICUN.5; GLUCOSE,POINT OF CARE 22 MG/DL (70-110)
[2024-01-30] MEDS ORDERED: SODIUM CHLORIDE 0.9% 250 ML IV ONE (21:46)
[2024-01-31] VITALS (13 sets, daily range): BP systolic 99–112; BP diastolic 54–70; PULSE 60–106; RESP 26–27; TEMP 99.3–100.1; O2SAT 97–100
[2024-01-31 01:01] LABS: GLUCOMETER DEV NAME(LOC) ICU.S6; GLUCOSE,POINT OF CARE 108 MG/DL (70-110)
[2024-01-31] MEDS ORDERED: DEXTROSE 50%-WATER 25 GM/50 ML SYRINGE IVP PRN (04:30)
[2024-01-31 06:17] LABS: BASOPHILS % (AUTO) 0.4 % (0.0-2.0); EOSINOPHILS % (AUTO) 0.3 % (1.0-6.0); HEMOGLOBIN 9.8 g/dL (12.0-16.0); LYMPHOCYTES # (AUTO) 1.1 K/uL (1.0-4.8); LYMPHOCYTES % (AUTO) 11.2 % (22.0-44.0); MEAN CORPUSCULAR HEMOGLOBIN 32.3 pg (26.0-34.0); MEAN CORPUSCULAR HGB CONC 32.8 G/dL (31.0-37.0); MEAN CORPUSCULAR VOLUME 98 fL (80-100); MONOCYTES # (AUTO) 0.6 K/uL (0.1-1.0); MONOCYTES % (AUTO) 6.4 % (2.0-9.0); NEUTROPHILS # (AUTO) 8.1 K/uL (1.8-7.7); NEUTROPHILS % (AUTO) 81.7 % (40.0-70.0); PLATELET COUNT (AUTO) 235 K/uL (150-450); RED BLOOD CELL COUNT(AUTO) 3.05 MIL/uL (4.00-5.20); RED CELL DISTRIBUTION WIDTH 13.3 % (11.5-14.5); WHITE BLOOD COUNT (AUTO) 9.9 K/uL (4.5-11.0)
[2024-01-31 06:32] LABS: ANION GAP 6 mmol/L (8-16); CALCIUM, TOTAL 7.8 mg/dL (8.8-10.5); CARBON DIOXIDE 29 mmol/L (22-29); CHLORIDE 102 mmol/L (98-107); CREATININE 0.89 mg/dL (0.60-1.30); GLOMERULAR FILTR. RATE CALC > 60 mL/min (>60); GLUCOSE,RANDOM 94 mg/dL (70-110); PHOSPHORUS 3.3 mg/dL (2.5-4.9); POTASSIUM 3.7 mmol/L (3.5-5.1); SODIUM SERUM 137 mmol/L (136-145); UREA NITROGEN, BLOOD 8 mg/dL (7-18)
[2024-01-31 10:21] LABS: GLUCOMETER DEV NAME(LOC) ICU.S6; GLUCOSE,POINT OF CARE 124 MG/DL (70-110)
[2024-01-31] MEDS: ACETAMINOPHEN 325 MG TABLET PO PRN (12:41)
[2024-01-31] MEDS: PROPOFOL 1000 MG/ISO-OSM 100 ML IV PRN (15:45)
[2024-01-31 20:35] LABS: GLUCOMETER DEV NAME(LOC) ICU.S6; GLUCOSE,POINT OF CARE 98 MG/DL (70-110)
[2024-01-31 20:35] LABS: GLUCOMETER DEV NAME(LOC) ICU.S6; GLUCOSE,POINT OF CARE 128 MG/DL (70-110)
[2024-02-01] VITALS (15 sets, daily range): BP systolic 88–133; BP diastolic 44–85; PULSE 63–99; RESP 26–28; TEMP 98.7–99.5; O2SAT 30–100
[2024-02-01 05:25] LABS: GLUCOMETER DEV NAME(LOC) ICUN.5; GLUCOSE,POINT OF CARE 124 MG/DL (70-110)
[2024-02-01 07:01] LABS: GLUCOMETER DEV NAME(LOC) ICU.S6; GLUCOSE,POINT OF CARE 103 MG/DL (70-110)
[2024-02-01 07:35] LABS: BASOPHILS % (AUTO) 0.4 % (0.0-2.0); EOSINOPHILS % (AUTO) 0.4 % (1.0-6.0); HEMATOCRIT 31.1 % (36-46); HEMOGLOBIN 10.4 g/dL (12.0-16.0); LYMPHOCYTES # (AUTO) 1.4 K/uL (1.0-4.8); LYMPHOCYTES % (AUTO) 13.6 % (22.0-44.0); MEAN CORPUSCULAR HEMOGLOBIN 32.9 pg (26.0-34.0); MEAN CORPUSCULAR HGB CONC 33.2 G/dL (31.0-37.0); MEAN CORPUSCULAR VOLUME 99 fL (80-100); MONOCYTES # (AUTO) 0.8 K/uL (0.1-1.0); MONOCYTES % (AUTO) 7.7 % (2.0-9.0); NEUTROPHILS # (AUTO) 7.9 K/uL (1.8-7.7); NEUTROPHILS % (AUTO) 77.9 % (40.0-70.0); PLATELET COUNT (AUTO) 231 K/uL (150-450); RED BLOOD CELL COUNT(AUTO) 3.15 MIL/uL (4.00-5.20); RED CELL DISTRIBUTION WIDTH 13.2 % (11.5-14.5); WHITE BLOOD COUNT (AUTO) 10.1 K/uL (4.5-11.0)
[2024-02-01 07:38] LABS: CALCIUM, TOTAL 7.9 mg/dL (8.8-10.5); CREATININE 1.05 mg/dL (0.60-1.30); POTASSIUM 3.5 mmol/L (3.5-5.1)
[2024-02-01 07:47] LABS: ALBUMIN 1.5 g/dL (3.4-5.0); BILIRUBIN,TOTAL 0.3 mg/dL (0.1-1.0); MAGNESIUM 2.1 mg/dL (1.80-2.40); PHOSPHORUS 3.5 mg/dL (2.5-4.9); TOTAL PROTEIN, SERUM 5.8 g/dL (6.4-8.2)
[2024-02-01] MEDS: PANTOPRAZOLE SODIUM 40 MG/VIAL IVP SCH (08:27)
[2024-02-01] MEDS: ALBUMIN HUMAN 25%-12.5GM/50ML 50 ML IV SCH (10:02)
[2024-02-01] MEDS: DEXMEDETOMIDINE HCL 400 MCG in SODIUM CHLORIDE 0.9% 96 ML IV PRN (10:03)
[2024-02-01] MEDS ORDERED: SODIUM CHLORIDE 0.9% 500 ML IV ONE (10:24)
[2024-02-01 11:41] LABS: GLUCOMETER DEV NAME(LOC) ICUN.5; GLUCOSE,POINT OF CARE 101 MG/DL (70-110)
[2024-02-01 18:01] LABS: GLUCOMETER DEV NAME(LOC) ICUN.5; GLUCOSE,POINT OF CARE 103 MG/DL (70-110)
[2024-02-02] VITALS (13 sets, daily range): BP systolic 87–154; BP diastolic 53–70; PULSE 45–67; RESP 14–27; TEMP 97.3–99.1; O2SAT 96–100
[2024-02-02 06:40] LABS: BILIRUBIN,TOTAL 0.4 mg/dL (0.1-1.0); CALCIUM, TOTAL 8.4 mg/dL (8.8-10.5); MAGNESIUM 2.4 mg/dL (1.80-2.40)
[2024-02-02 06:41] LABS: ALBUMIN 2.1 g/dL (3.4-5.0); TOTAL PROTEIN, SERUM 6.1 g/dL (6.4-8.2)
[2024-02-02 07:10] LABS: POTASSIUM 2.9 mmol/L (3.5-5.1)
[2024-02-02 07:18] LABS: BASOPHILS % (AUTO) 0.6 % (0.0-2.0); EOSINOPHILS % (AUTO) 0.8 % (1.0-6.0); HEMATOCRIT 29.6 % (36-46); HEMOGLOBIN 9.9 g/dL (12.0-16.0); LYMPHOCYTES # (AUTO) 1.4 K/uL (1.0-4.8); LYMPHOCYTES % (AUTO) 17.3 % (22.0-44.0); MEAN CORPUSCULAR HGB CONC 33.5 G/dL (31.0-37.0); MEAN CORPUSCULAR VOLUME 98 fL (80-100); MONOCYTES # (AUTO) 0.7 K/uL (0.1-1.0); MONOCYTES % (AUTO) 8.6 % (2.0-9.0); NEUTROPHILS # (AUTO) 5.9 K/uL (1.8-7.7); NEUTROPHILS % (AUTO) 72.7 % (40.0-70.0); PLATELET COUNT (AUTO) 201 K/uL (150-450); RED BLOOD CELL COUNT(AUTO) 3.01 MIL/uL (4.00-5.20); RED CELL DISTRIBUTION WIDTH 13.4 % (11.5-14.5); WHITE BLOOD COUNT (AUTO) 8.1 K/uL (4.5-11.0)
[2024-02-02] MEDS: POTASSIUM CHL 10 MEQ/WATER 50 ML IV SCH (09:51)
[2024-02-02 11:10] LABS: GLUCOMETER DEV NAME(LOC) ICUN.5; GLUCOSE,POINT OF CARE 127 MG/DL (70-110)
[2024-02-02 15:51] LABS: ABG BASE EXCESS 3.2 mmol/L (-2.0-3.0); ABG CARBOXYHEMOGLOBIN 0.3 % (0.5-1.5); ABG HCO3 27.1 mmol/L (21.0-28.0); ABG METHEMOGLOBIN 0.3 % (0.0-1.5); ABG OXYGEN CONTENT 14.2 mL/dL (15.0-23.0); ABG OXYGEN SATURATION 98.4 % (94.0-98.0); ABG OXYHEMOGLOBIN 97.8 % (94.0-98.0); ABG PCO2 40 mmHg (32.0-45.0); ABG PH 7.453 (7.350-7.450); ABG TOTAL HEMOGLOBIN 10.1 G/dL (12.0-16.0); ALLEN TEST, BLOOD GAS Positive; O2 DEVICE,BLOOD GAS VENTILATOR (ROOM AIR); PO2, ARTERIAL BG 132.8 mmHg (83.0-108.0); SITE, BLOOD GAS RT RADIAL; SOURCE, BLOOD GAS ARTERIAL; TEMPERATURE, FAHRENHEIT, BG 97.3 FAHREN (96.0-98.6)
[2024-02-02 15:52] LABS: PEEP,BG 5 cm H2O; PRESSURE SUPPORT, BG 8 cm H2O; SPONTANEOUS VT, BG 381 ml
[2024-02-02 17:15] LABS: GLUCOMETER DEV NAME(LOC) ICUN.5; GLUCOSE,POINT OF CARE 121 MG/DL (70-110)
[2024-02-02 17:50] LABS: GLUCOMETER DEV NAME(LOC) ICUN.5; GLUCOSE,POINT OF CARE 104 MG/DL (70-110)
[2024-02-03] VITALS (14 sets, daily range): BP systolic 92–111; BP diastolic 54–71; PULSE 54–98; RESP 19–26; TEMP 98–99.3; O2SAT 91–100
[2024-02-03 05:51] LABS: GLUCOMETER DEV NAME(LOC) ICU.S6; GLUCOSE,POINT OF CARE 80 MG/DL (70-110)
[2024-02-03 06:46] LABS: HEMATOCRIT 31.6 % (36-46); HEMOGLOBIN 10.6 g/dL (12.0-16.0); MEAN CORPUSCULAR HEMOGLOBIN 33.1 pg (26.0-34.0); MEAN CORPUSCULAR HGB CONC 33.4 G/dL (31.0-37.0); MEAN CORPUSCULAR VOLUME 99 fL (80-100); PLATELET COUNT (AUTO) 252 K/uL (150-450); RED BLOOD CELL COUNT(AUTO) 3.19 MIL/uL (4.00-5.20); RED CELL DISTRIBUTION WIDTH 13.5 % (11.5-14.5); WHITE BLOOD COUNT (AUTO) 10.8 K/uL (4.5-11.0)
[2024-02-03 07:27] LABS: CALCIUM, TOTAL 8.3 mg/dL (8.8-10.5); CREATININE 1.04 mg/dL (0.60-1.30); POTASSIUM 3.7 mmol/L (3.5-5.1)
[2024-02-03 07:47] LABS: BAND NEUTROPHILS % (MANUAL) 5 % (0-5); EOSINOPHILS % (MANUAL) 4 % (1-6); LYMPHOCYTES % (MANUAL) 15 % (22-44); MONOCYTES % (MANUAL) 11 % (2-9); SEGMENTED NEUTROPHILS % 65 % (40-70); TOTAL CELLS COUNTED 100
[2024-02-03 11:30] LABS: GLUCOMETER DEV NAME(LOC) ICU.S6; GLUCOSE,POINT OF CARE 106 MG/DL (70-110)
[2024-02-03 17:30] LABS: GLUCOMETER DEV NAME(LOC) ICU.S6; GLUCOSE,POINT OF CARE 95 MG/DL (70-110)
[2024-02-03] MEDS: MIDODRINE HCL 5 MG TABLET PO SCH (21:05)
[2024-02-04] VITALS (15 sets, daily range): BP systolic 105–137; BP diastolic 57–67; PULSE 57–88; RESP 15–26; TEMP 98.5–99.2; O2SAT 99–100
[2024-02-04 03:06] LABS: GLUCOMETER DEV NAME(LOC) ICU.S6; GLUCOSE,POINT OF CARE 102 MG/DL (70-110)
[2024-02-04 03:06] LABS: GLUCOMETER DEV NAME(LOC) ICU.S6; GLUCOSE,POINT OF CARE 128 MG/DL (70-110)
[2024-02-04 06:45] LABS: GLUCOMETER DEV NAME(LOC) ICUN.5; GLUCOSE,POINT OF CARE 104 MG/DL (70-110)
[2024-02-04 07:03] LABS: CREATININE 0.99 mg/dL (0.60-1.30); POTASSIUM 3.3 mmol/L (3.5-5.1)
[2024-02-04 08:49] LABS: HEMATOCRIT 30.8 % (36-46); HEMOGLOBIN 10.4 g/dL (12.0-16.0); MEAN CORPUSCULAR HEMOGLOBIN 33.2 pg (26.0-34.0); MEAN CORPUSCULAR HGB CONC 33.7 G/dL (31.0-37.0); MEAN CORPUSCULAR VOLUME 98 fL (80-100); PLATELET COUNT (AUTO) 263 K/uL (150-450); RED BLOOD CELL COUNT(AUTO) 3.13 MIL/uL (4.00-5.20); RED CELL DISTRIBUTION WIDTH 13.5 % (11.5-14.5); WHITE BLOOD COUNT (AUTO) 8.8 K/uL (4.5-11.0)
[2024-02-04 08:51] LABS: BAND NEUTROPHILS % (MANUAL) 7 % (0-5); EOSINOPHILS % (MANUAL) 2 % (1-6); LYMPHOCYTES % (MANUAL) 14 % (22-44); MONOCYTES % (MANUAL) 9 % (2-9); SEGMENTED NEUTROPHILS % 68 % (40-70); TOTAL CELLS COUNTED 100
[2024-02-04 12:20] LABS: ABG BASE EXCESS 1.2 mmol/L (-2.0-3.0); ABG CARBOXYHEMOGLOBIN 0.4 % (0.5-1.5); ABG HCO3 25.4 mmol/L (21.0-28.0); ABG METHEMOGLOBIN 0.3 % (0.0-1.5); ABG OXYGEN CONTENT 18.3 mL/dL (15.0-23.0); ABG OXYGEN SATURATION 98.2 % (94.0-98.0); ABG OXYHEMOGLOBIN 97.5 % (94.0-98.0); ABG PCO2 42 mmHg (32.0-45.0); ABG PH 7.407 (7.350-7.450); ABG TOTAL HEMOGLOBIN 13.2 G/dL (12.0-16.0); PO2, ARTERIAL BG 119.9 mmHg (83.0-108.0); SOURCE, BLOOD GAS ARTERIAL; TEMPERATURE, FAHRENHEIT, BG 98.8 FAHREN (96.0-98.6)
[2024-02-04 12:21] LABS: SITE, BLOOD GAS RT BRACHIAL
[2024-02-04 12:22] LABS: ABG A-A DIFF O2 44.5 mmHg (10-20.0); O2 DEVICE,BLOOD GAS VENTILATOR (ROOM AIR); PEEP,BG 5 cm H2O; PRESSURE SUPPORT, BG 5 cm H2O; SPONTANEOUS VT, BG 384 ml; VENT MODE, BG CPAP (ROOM AIR); VT, ABG 350 ml
[2024-02-04] MEDS: POTASSIUM CHLORIDE 10% 40 MEQ/30 ML LIQUID UDCUP GT PRN (14:46)
[2024-02-04 21:01] LABS: GLUCOMETER DEV NAME(LOC) ICU.S6; GLUCOSE,POINT OF CARE 109 MG/DL (70-110)
[2024-02-05] VITALS (15 sets, daily range): BP systolic 107–141; BP diastolic 47–70; PULSE 58–103; RESP 12–30; TEMP 98.4–99.5; O2SAT 94–100
[2024-02-05 06:07] LABS: BASOPHILS % (AUTO) 0.4 % (0.0-2.0); EOSINOPHILS % (AUTO) 1.3 % (1.0-6.0); HEMATOCRIT 25.9 % (36-46); HEMOGLOBIN 8.7 g/dL (12.0-16.0); LYMPHOCYTES % (AUTO) 12.2 % (22.0-44.0); MEAN CORPUSCULAR HEMOGLOBIN 33.5 pg (26.0-34.0); MEAN CORPUSCULAR HGB CONC 33.8 G/dL (31.0-37.0); MEAN CORPUSCULAR VOLUME 99 fL (80-100); MONOCYTES # (AUTO) 0.9 K/uL (0.1-1.0); MONOCYTES % (AUTO) 10.9 % (2.0-9.0); NEUTROPHILS % (AUTO) 75.2 % (40.0-70.0); PLATELET COUNT (AUTO) 218 K/uL (150-450); RED BLOOD CELL COUNT(AUTO) 2.61 MIL/uL (4.00-5.20); RED CELL DISTRIBUTION WIDTH 13.5 % (11.5-14.5)
[2024-02-05] MEDS ORDERED: SODIUM CHLORIDE 0.9% 250 ML IV ONE (06:10)
[2024-02-05 06:20] LABS: ALANINE AMINOTRANSFERASE 33 U/L (12-78); ALBUMIN 1.6 g/dL (3.4-5.0); ALKALINE PHOSPHATASE 93 U/L (46-116); ANION GAP 8 mmol/L (8-16); ASPARTATE AMINOTRANSFERASE 43 U/L (15-37); BILIRUBIN,TOTAL 0.2 mg/dL (0.1-1.0); CARBON DIOXIDE 28 mmol/L (22-29); CHLORIDE 103 mmol/L (98-107); CREATININE 0.89 mg/dL (0.60-1.30); GLOMERULAR FILTR. RATE CALC > 60 mL/min (>60); GLUCOSE,RANDOM 114 mg/dL (70-110); PHOSPHORUS 3.2 mg/dL (2.5-4.9); POTASSIUM 3.7 mmol/L (3.5-5.1); SODIUM SERUM 139 mmol/L (136-145); TOTAL PROTEIN, SERUM 5.1 g/dL (6.4-8.2); UREA NITROGEN, BLOOD 17 mg/dL (7-18)
[2024-02-05 13:21] LABS: GLUCOMETER DEV NAME(LOC) ICUN.5; GLUCOSE,POINT OF CARE 303 MG/DL (70-110)
[2024-02-05 16:12] LABS: C.DIFF GDH ANTIGEN, Stool Negative (Negative); C.DIFF TOXINS A&B, Stool Negative (Negative)
[2024-02-06] VITALS (16 sets, daily range): BP systolic 99–150; BP diastolic 51–74; PULSE 71–108; RESP 20–27; TEMP 99.8–100.4; O2SAT 96–100
[2024-02-06 04:41] LABS: GLUCOMETER DEV NAME(LOC) ICUN.5; GLUCOSE,POINT OF CARE 105 MG/DL (70-110)
[2024-02-06 06:09] LABS: BASOPHILS % (AUTO) 0.3 % (0.0-2.0); EOSINOPHILS % (AUTO) 0.4 % (1.0-6.0); HEMATOCRIT 24.7 % (36-46); HEMOGLOBIN 8.2 g/dL (12.0-16.0); LYMPHOCYTES # (AUTO) 0.9 K/uL (1.0-4.8); MEAN CORPUSCULAR HEMOGLOBIN 33.2 pg (26.0-34.0); MEAN CORPUSCULAR HGB CONC 33.2 G/dL (31.0-37.0); MEAN CORPUSCULAR VOLUME 100 fL (80-100); MONOCYTES # (AUTO) 1.5 K/uL (0.1-1.0); MONOCYTES % (AUTO) 11.9 % (2.0-9.0); NEUTROPHILS # (AUTO) 10.1 K/uL (1.8-7.7); NEUTROPHILS % (AUTO) 80.4 % (40.0-70.0); PLATELET COUNT (AUTO) 237 K/uL (150-450); RED BLOOD CELL COUNT(AUTO) 2.47 MIL/uL (4.00-5.20); RED CELL DISTRIBUTION WIDTH 13.4 % (11.5-14.5); WHITE BLOOD COUNT (AUTO) 12.6 K/uL (4.5-11.0)
[2024-02-06 06:23] LABS: ANION GAP 9 mmol/L (8-16); CALCIUM, TOTAL 8.4 mg/dL (8.8-10.5); CARBON DIOXIDE 30 mmol/L (22-29); CHLORIDE 103 mmol/L (98-107); CREATININE 0.82 mg/dL (0.60-1.30); GLOMERULAR FILTR. RATE CALC > 60 mL/min (>60); GLUCOSE,RANDOM 93 mg/dL (70-110); POTASSIUM 3.5 mmol/L (3.5-5.1); SODIUM SERUM 142 mmol/L (136-145); UREA NITROGEN, BLOOD 11 mg/dL (7-18)
[2024-02-06] MEDS: POTASSIUM CHL 10 MEQ/WATER 50 ML IV PRN (06:35)
[2024-02-06 07:30] LABS: GLUCOMETER DEV NAME(LOC) ICUN.5; GLUCOSE,POINT OF CARE 100 MG/DL (70-110)
[2024-02-06 15:44] LABS: ABG BASE EXCESS 5.8 mmol/L (-2.0-3.0); ABG CARBOXYHEMOGLOBIN 0.1 % (0.5-1.5); ABG HCO3 29.4 mmol/L (21.0-28.0); ABG METHEMOGLOBIN 0.3 % (0.0-1.5); ABG OXYGEN CONTENT 12.1 mL/dL (15.0-23.0); ABG OXYGEN SATURATION 97.8 % (94.0-98.0); ABG OXYHEMOGLOBIN 97.4 % (94.0-98.0); ABG PCO2 42 mmHg (32.0-45.0); ABG PH 7.468 (7.350-7.450); ABG TOTAL HEMOGLOBIN 8.7 G/dL (12.0-16.0); ALLEN TEST, BLOOD GAS Positive; CPAP, BG 5 cm H2O; O2 DEVICE,BLOOD GAS VENTILATOR (ROOM AIR); PO2, ARTERIAL BG 106.4 mmHg (83.0-108.0); PRESSURE SUPPORT, BG 8 cm H2O; SITE, BLOOD GAS RT RADIAL; SOURCE, BLOOD GAS ARTERIAL; SPONTANEOUS VT, BG 305 ml; VENT MODE, BG CPAP (ROOM AIR)
[2024-02-06] MEDS: MethylPREDNISolone SOD SUCC 40 MG/ML VIAL IVP SCH (18:59)
[2024-02-06] MEDS ORDERED: SODIUM CHLORIDE 0.9% 250 ML IV ONE (20:21)
[2024-02-07] VITALS (9 sets, daily range): BP systolic 122–174; BP diastolic 56–91; PULSE 74–110; RESP 16–28; TEMP 98.5–99.7; O2SAT 96–100
[2024-02-07 07:00] LABS: ANION GAP 8 mmol/L (8-16); CALCIUM, TOTAL 8.8 mg/dL (8.8-10.5); CARBON DIOXIDE 30 mmol/L (22-29); CHLORIDE 102 mmol/L (98-107); CREATININE 0.83 mg/dL (0.60-1.30); GLOMERULAR FILTR. RATE CALC > 60 mL/min (>60); GLUCOSE,RANDOM 137 mg/dL (70-110); POTASSIUM 3.8 mmol/L (3.5-5.1); SODIUM SERUM 140 mmol/L (136-145); UREA NITROGEN, BLOOD 12 mg/dL (7-18)
[2024-02-07 08:55] LABS: BASOPHILS % (AUTO) 0.2 % (0.0-2.0); EOSINOPHILS % (AUTO) 0 % (1.0-6.0); HEMATOCRIT 23.9 % (36-46); HEMOGLOBIN 7.9 g/dL (12.0-16.0); LYMPHOCYTES # (AUTO) 0.9 K/uL (1.0-4.8); LYMPHOCYTES % (AUTO) 5.2 % (22.0-44.0); MEAN CORPUSCULAR HEMOGLOBIN 33.2 pg (26.0-34.0); MEAN CORPUSCULAR HGB CONC 33.2 G/dL (31.0-37.0); MEAN CORPUSCULAR VOLUME 100 fL (80-100); MONOCYTES # (AUTO) 1.1 K/uL (0.1-1.0); MONOCYTES % (AUTO) 6.4 % (2.0-9.0); NEUTROPHILS # (AUTO) 15.4 K/uL (1.8-7.7); PLATELET COUNT (AUTO) 275 K/uL (150-450); RED BLOOD CELL COUNT(AUTO) 2.39 MIL/uL (4.00-5.20); RED CELL DISTRIBUTION WIDTH 13.6 % (11.5-14.5); WHITE BLOOD COUNT (AUTO) 17.5 K/uL (4.5-11.0)
[2024-02-07 08:58] LABS: NEUTROPHILS % (AUTO) 88.2 % (40.0-70.0)
[2024-02-07 11:09] LABS: ABG BASE EXCESS 7.7 mmol/L (-2.0-3.0); ABG CARBOXYHEMOGLOBIN 0.4 % (0.5-1.5); ABG HCO3 30.8 mmol/L (21.0-28.0); ABG METHEMOGLOBIN 0.3 % (0.0-1.5); ABG OXYGEN CONTENT 11.9 mL/dL (15.0-23.0); ABG OXYHEMOGLOBIN 95.3 % (94.0-98.0); ABG PCO2 45 mmHg (32.0-45.0); ABG PH 7.464 (7.350-7.450); ABG TOTAL HEMOGLOBIN 8.8 G/dL (12.0-16.0); ALLEN TEST, BLOOD GAS Positive; O2 DEVICE,BLOOD GAS VENTILATOR (ROOM AIR); PEEP,BG 5 cm H2O; PO2, ARTERIAL BG 82.3 mmHg (83.0-108.0); PRESSURE SUPPORT, BG 5 cm H2O; SITE, BLOOD GAS RT RADIAL; SOURCE, BLOOD GAS ARTERIAL; SPONTANEOUS VT, BG 344 ml; TEMPERATURE, FAHRENHEIT, BG 98.7 FAHREN (96.0-98.6); VENT MODE, BG Press. Support Vent. (ROOM AIR)
[2024-02-07] MEDS ORDERED: SODIUM CHLORIDE 0.9% 250 ML IV ONE (21:23)
[2024-02-08] VITALS (7 sets, daily range): BP systolic 115–188; BP diastolic 56–92; PULSE 86–120; RESP 16–26; TEMP 98.3–99.3; O2SAT 95–98
[2024-02-08 06:23] LABS: HEMATOCRIT 22.6 % (36-46); HEMOGLOBIN 7.4 g/dL (12.0-16.0); MEAN CORPUSCULAR HEMOGLOBIN 32.9 pg (26.0-34.0); MEAN CORPUSCULAR HGB CONC 32.6 G/dL (31.0-37.0); MEAN CORPUSCULAR VOLUME 101 fL (80-100); PLATELET COUNT (AUTO) 414 K/uL (150-450); RED BLOOD CELL COUNT(AUTO) 2.24 MIL/uL (4.00-5.20); RED CELL DISTRIBUTION WIDTH 13.5 % (11.5-14.5); WHITE BLOOD COUNT (AUTO) 28.3 K/uL (4.5-11.0)
[2024-02-08 06:30] LABS: ALANINE AMINOTRANSFERASE 45 U/L (12-78); ALBUMIN 1.9 g/dL (3.4-5.0); ALKALINE PHOSPHATASE 103 U/L (46-116); ANION GAP 8 mmol/L (8-16); ASPARTATE AMINOTRANSFERASE 64 U/L (15-37); BILIRUBIN,TOTAL 0.3 mg/dL (0.1-1.0); CALCIUM, TOTAL 8.7 mg/dL (8.8-10.5); CARBON DIOXIDE 32 mmol/L (22-29); CHLORIDE 103 mmol/L (98-107); CREATININE 0.89 mg/dL (0.60-1.30); GLOMERULAR FILTR. RATE CALC > 60 mL/min (>60); GLUCOSE,RANDOM 104 mg/dL (70-110); POTASSIUM 3.9 mmol/L (3.5-5.1); SODIUM SERUM 142 mmol/L (136-145); TOTAL PROTEIN, SERUM 6.5 g/dL (6.4-8.2); UREA NITROGEN, BLOOD 16 mg/dL (7-18)
[2024-02-08 07:31] LABS: BAND NEUTROPHILS % (MANUAL) 3 % (0-5); LYMPHOCYTES % (MANUAL) 6 % (22-44); MONOCYTES % (MANUAL) 5 % (2-9); SEGMENTED NEUTROPHILS % 86 % (40-70); TOTAL CELLS COUNTED 100
[2024-02-08 07:32] LABS: PLATELET MORPHOLOGY COMMENT LARGE PLTS PRESENT; RBC MORPHOLOGY COMMENT ABNORMAL RBC MORPH
[2024-02-08] MEDS ORDERED: SODIUM CHLORIDE 0.9% 500 ML IV ONE ×2 (21:23)
[2024-02-09] VITALS (14 sets, daily range): BP systolic 12–140; BP diastolic 54–73; PULSE 70–96; RESP 16–20; TEMP 97.5–98.3; O2SAT 97–100
[2024-02-09 09:32] LABS: CREATININE 0.97 mg/dL (0.60-1.30); POTASSIUM 4.3 mmol/L (3.5-5.1)
[2024-02-09 09:33] LABS: MEAN CORPUSCULAR HEMOGLOBIN 32.6 pg (26.0-34.0); MEAN CORPUSCULAR HGB CONC 32.2 G/dL (31.0-37.0); MEAN CORPUSCULAR VOLUME 101 fL (80-100); PLATELET COUNT (AUTO) 569 K/uL (150-450); RED BLOOD CELL COUNT(AUTO) 1.95 MIL/uL (4.00-5.20); WHITE BLOOD COUNT (AUTO) 27.8 K/uL (4.5-11.0)
[2024-02-09 09:46] LABS: HEMOGLOBIN 6.4 g/dL (12.0-16.0)
[2024-02-09 09:47] LABS: HEMATOCRIT 19.8 % (36-46)
[2024-02-09 10:51] LABS: BAND NEUTROPHILS % (MANUAL) 4 % (0-5); LYMPHOCYTES % (MANUAL) 10 % (22-44); MONOCYTES % (MANUAL) 8 % (2-9); RBC MORPHOLOGY COMMENT ABNORMAL RBC MORPH; SEGMENTED NEUTROPHILS % 78 % (40-70); TOTAL CELLS COUNTED 100
[2024-02-09] MEDS ORDERED: SODIUM CHLORIDE 0.9% 2,000 ML ONE (12:00)
[2024-02-09] MEDS ORDERED: SODIUM CHLORIDE 0.9% 1,000 ML ONE (12:53)
[2024-02-09 20:47] LABS: BASOPHILS % (AUTO) 0.2 % (0.0-2.0); EOSINOPHILS % (AUTO) 0 % (1.0-6.0); HEMATOCRIT 27.7 % (36-46); LYMPHOCYTES # (AUTO) 1.6 K/uL (1.0-4.8); LYMPHOCYTES % (AUTO) 6.1 % (22.0-44.0); MEAN CORPUSCULAR HGB CONC 32.6 G/dL (31.0-37.0); MEAN CORPUSCULAR VOLUME 92 fL (80-100); MONOCYTES # (AUTO) 3.1 K/uL (0.1-1.0); MONOCYTES % (AUTO) 11.8 % (2.0-9.0); NEUTROPHILS # (AUTO) 21.4 K/uL (1.8-7.7); NEUTROPHILS % (AUTO) 81.9 % (40.0-70.0); PLATELET COUNT (AUTO) 523 K/uL (150-450); RED BLOOD CELL COUNT(AUTO) 3.01 MIL/uL (4.00-5.20); RED CELL DISTRIBUTION WIDTH 20.7 % (11.5-14.5); WHITE BLOOD COUNT (AUTO) 26.1 K/uL (4.5-11.0)
[2024-02-10] VITALS (7 sets, daily range): BP systolic 98–122; BP diastolic 51–69; PULSE 75–94; RESP 16–20; TEMP 97.9–99.3; O2SAT 93–98
[2024-02-10 13:48] LABS: HEMATOCRIT 26.3 % (36-46); MEAN CORPUSCULAR HEMOGLOBIN 31.1 pg (26.0-34.0); MEAN CORPUSCULAR VOLUME 92 fL (80-100); PLATELET COUNT (AUTO) 597 K/uL (150-450); RED BLOOD CELL COUNT(AUTO) 2.88 MIL/uL (4.00-5.20); RED CELL DISTRIBUTION WIDTH 20.1 % (11.5-14.5); WHITE BLOOD COUNT (AUTO) 28.7 K/uL (4.5-11.0)
[2024-02-10] MEDS ORDERED: 0.9% SODIUM CHLORIDE 10 ML SYRINGE IVP ONE (13:49)
[2024-02-10] MEDS ORDERED: IOHEXOL 350 MG/ML 100 ML VIAL ONE (13:49)
[2024-02-10] MEDS ORDERED: SODIUM CHLORIDE 0.9% 100 ML ONE (13:49)
[2024-02-10 13:57] LABS: CALCIUM, TOTAL 8.5 mg/dL (8.8-10.5); CREATININE 1.02 mg/dL (0.60-1.30); POTASSIUM 4.2 mmol/L (3.5-5.1)
[2024-02-10 14:01] LABS: GLUCOMETER DEV NAME(LOC) 5S.1C; GLUCOSE,POINT OF CARE 125 MG/DL (70-110)
[2024-02-10 14:03] LABS: ALBUMIN 1.9 g/dL (3.4-5.0); BILIRUBIN,TOTAL 0.4 mg/dL (0.1-1.0); TOTAL PROTEIN, SERUM 6.3 g/dL (6.4-8.2)
[2024-02-10 14:04] LABS: INR 1.4 (0.9-1.1); PROTHROMBIN TIME 14.3 SEC (9.4-11.6)
[2024-02-10 14:07] LABS: TROPONIN I-HIGH SENSITIVITY 24 ng/L (<51)
[2024-02-10 14:15] LABS: GLUCOMETER DEV NAME(LOC) ER.7; GLUCOSE,POINT OF CARE 114 MG/DL (70-110)
[2024-02-10 14:40] LABS: BAND NEUTROPHILS % (MANUAL) 7 % (0-5); LYMPHOCYTES % (MANUAL) 5 % (22-44); MONOCYTES % (MANUAL) 12 % (2-9); SEGMENTED NEUTROPHILS % 76 % (40-70); TOTAL CELLS COUNTED 100; WBC MORPHOLOGY TOXIC GRANULATION
[2024-02-10] MEDS ORDERED: 0.9% SODIUM CHLORIDE 10 ML SYRINGE IVP PRN (14:45)
[2024-02-10] MEDS: SODIUM CHLORIDE 0.9% 1,750 ML IV ONE ×2 (14:53→14:54)
[2024-02-10] MEDS: CefTRIAXone 1 GM/DEXTROSE 50 ML IV ONE (15:12)
[2024-02-10 15:14] LABS: APPEARANCE,URINE CLEAR (CLEAR); BILIRUBIN,URINE NEGATIVE (NEGATIVE); COLOR,URINE LIGHT YELLOW (YELLOW); GLUCOSE, URINE (UA) NEGATIVE (NEGATIVE); KETONES,URINE NEGATIVE (NEGATIVE); LEUKOCYTE ESTERASE ,URINE NEGATIVE (NEGATIVE); NITRATE,URINE NEGATIVE (NEGATIVE); OCCULT BLOOD,URINE MODERATE (NEGATIVE); PROTEIN,URINE 30-70 mg/dL (NEGATIVE)
[2024-02-10 15:15] LABS: ABG BASE EXCESS 11.2 mmol/L (-2.0-3.0); ABG HCO3 33.9 mmol/L (21.0-28.0); ABG METHEMOGLOBIN 0.3 % (0.0-1.5); ABG OXYGEN CONTENT 11.8 mL/dL (15.0-23.0); ABG OXYGEN SATURATION 97.7 % (94.0-98.0); ABG OXYHEMOGLOBIN 96.4 % (94.0-98.0); ABG PCO2 48 mmHg (32.0-45.0); ABG TOTAL HEMOGLOBIN 8.6 G/dL (12.0-16.0); PO2, ARTERIAL BG 100.3 mmHg (83.0-108.0); SOURCE, BLOOD GAS ARTERIAL; TEMPERATURE, FAHRENHEIT, BG 99.7 FAHREN (96.0-98.6)
[2024-02-10 15:18] LABS: ALLEN TEST, BLOOD GAS Positive; SITE, BLOOD GAS LFT RADIAL
[2024-02-10 15:19] LABS: ABG A-A DIFF O2 42.6 mmHg (10-20.0); O2 DEVICE,BLOOD GAS CANNULA (ROOM AIR)
[2024-02-10 15:50] LABS: BACTERIA,URINE Rare /HPF (None Seen); RBC,URINE 0-2 /HPF (0-2); WBC,URINE 0-2 /HPF (0-5)
[2024-02-10 15:55] LABS: LACTIC ACID 1.9 mmol/L (0.4-2.0)
[2024-02-10] MEDS: LevETIRAcetam 1,000 MG in DEXTROSE 5%-WATER 100 ML IV ONE (16:03)
[2024-02-10] MEDS: HEPARIN SODIUM,PORCINE 5,000 UNITS/ML VIAL IVP PRN (18:38)
[2024-02-10 19:41] LABS: TROPONIN I-HIGH SENSITIVITY 21 ng/L (<51)
[2024-02-10] MEDS ORDERED: GADOTERATE MEGLUMINE 10 MMOL/20 ML VIAL IVP ONE (20:03)
[2024-02-11 00:51] VITALS: BP 108/60; PULSE 94; RESP 18; TEMP 98.5; O2SAT 98
[2024-02-11 01:54] LABS: TROPONIN I-HIGH SENSITIVITY 25 ng/L (<51)
[2024-02-11 04:12] VITALS: BP 109/50; PULSE 98; RESP 20; TEMP 98.7; O2SAT 98
[2024-02-11 09:00] VITALS: BP 105/48; PULSE 91; RESP 19; TEMP 98.1; O2SAT 98
[2024-02-11 11:18] VITALS: BP 112/66; PULSE 90; RESP 20; TEMP 98.3; O2SAT 96
[2024-02-11 15:14] VITALS: BP 108/62; PULSE 95; RESP 18; TEMP 98.2; O2SAT 97
[2024-02-11 20:00] VITALS: BP 137/65; PULSE 100; RESP 19; TEMP 98.4; O2SAT 98
[2024-02-12 00:41] VITALS: BP 130/72; PULSE 98; RESP 18; TEMP 98; O2SAT 99
[2024-02-12 04:00] VITALS: BP 125/69; PULSE 102; RESP 18; TEMP 97.9; O2SAT 98
[2024-02-12 08:30] VITALS: BP 117/61; PULSE 93; RESP 18; TEMP 96.2; O2SAT 95
[2024-02-12 15:07] VITALS: BP 115/66; PULSE 91; RESP 17; TEMP 97.5; O2SAT 99
[2024-02-12 20:00] VITALS: BP 95/45; PULSE 89; RESP 18; O2SAT 95
[2024-02-13] VITALS: BP 107/54; PULSE 78; RESP 18; O2SAT 100
[2024-02-13 04:00] VITALS: BP 91/55; PULSE 79; RESP 19; O2SAT 96
[2024-02-13 07:17] LABS: HEMOGLOBIN 7.5 g/dL (12.0-16.0); MEAN CORPUSCULAR VOLUME 96 fL (80-100); RED CELL DISTRIBUTION WIDTH 19.6 % (11.5-14.5); WHITE BLOOD COUNT (AUTO) 15.5 K/uL (4.5-11.0)
[2024-02-13 07:36] VITALS: BP 108/52; PULSE 91; RESP 16; TEMP 98.1; O2SAT 96
[2024-02-13 07:39] LABS: ALANINE AMINOTRANSFERASE 30 U/L (12-78); ALBUMIN 1.5 g/dL (3.4-5.0); ALKALINE PHOSPHATASE 88 U/L (46-116); ANION GAP 6 mmol/L (8-16); ASPARTATE AMINOTRANSFERASE 38 U/L (15-37); BILIRUBIN,TOTAL 0.3 mg/dL (0.1-1.0); CALCIUM, TOTAL 8.4 mg/dL (8.8-10.5); CARBON DIOXIDE 32 mmol/L (22-29); CHLORIDE 102 mmol/L (98-107); CREATININE 0.77 mg/dL (0.60-1.30); GLOMERULAR FILTR. RATE CALC > 60 mL/min (>60); GLUCOSE,RANDOM 82 mg/dL (70-110); POTASSIUM 3.6 mmol/L (3.5-5.1); SODIUM SERUM 140 mmol/L (136-145); TOTAL PROTEIN, SERUM 5.6 g/dL (6.4-8.2); UREA NITROGEN, BLOOD 17 mg/dL (7-18)
[2024-02-13 08:01] LABS: HEMATOCRIT 23.2 % (36-46); MEAN CORPUSCULAR HEMOGLOBIN 31.2 pg (26.0-34.0); MEAN CORPUSCULAR HGB CONC 32.4 G/dL (31.0-37.0); PLATELET COUNT (AUTO) 519 K/uL (150-450); RED BLOOD CELL COUNT(AUTO) 2.41 MIL/uL (4.00-5.20)
[2024-02-13 09:08] LABS: BAND NEUTROPHILS % (MANUAL) 4 % (0-5); LYMPHOCYTES % (MANUAL) 13 % (22-44); MONOCYTES % (MANUAL) 7 % (2-9); SEGMENTED NEUTROPHILS % 76 % (40-70); TOTAL CELLS COUNTED 100
[2024-02-13 11:20] VITALS: BP 93/47; PULSE 72; RESP 18; TEMP 98.5; O2SAT 96
[2024-02-13 15:38] VITALS: BP 93/44; PULSE 79; RESP 16; TEMP 98.8; O2SAT 100
[2024-02-13 21:30] VITALS: BP 96/51; PULSE 82; RESP 20; TEMP 99.1; O2SAT 99
[2024-02-13] MEDS: LevETIRAcetam 500 MG in DEXTROSE 5%-WATER 100 ML IV SCH (21:32)
[2024-02-14] VITALS (8 sets, daily range): BP systolic 86–131; BP diastolic 40–86; PULSE 76–111; RESP 16–20; TEMP 97.5–98.4; O2SAT 96–100
[2024-02-14 07:42] LABS: HEMATOCRIT 22.6 % (36-46); HEMOGLOBIN 7.3 g/dL (12.0-16.0); MEAN CORPUSCULAR HGB CONC 32.2 G/dL (31.0-37.0); MEAN CORPUSCULAR VOLUME 96 fL (80-100); PLATELET COUNT (AUTO) 572 K/uL (150-450); RED BLOOD CELL COUNT(AUTO) 2.36 MIL/uL (4.00-5.20); RED CELL DISTRIBUTION WIDTH 20.7 % (11.5-14.5); WHITE BLOOD COUNT (AUTO) 13.4 K/uL (4.5-11.0)
[2024-02-14 07:47] LABS: BAND NEUTROPHILS % (MANUAL) 6 % (0-5); LYMPHOCYTES % (MANUAL) 13 % (22-44); MONOCYTES % (MANUAL) 8 % (2-9); SEGMENTED NEUTROPHILS % 73 % (40-70); TOTAL CELLS COUNTED 100
[2024-02-14 07:48] LABS: RBC MORPHOLOGY COMMENT ABNORMAL R
[2024-02-14 08:02] LABS: ANION GAP 7 mmol/L (8-16); CALCIUM, TOTAL 8.1 mg/dL (8.8-10.5); CARBON DIOXIDE 32 mmol/L (22-29); CHLORIDE 102 mmol/L (98-107); CREATININE 0.89 mg/dL (0.60-1.30); GLOMERULAR FILTR. RATE CALC > 60 mL/min (>60); GLUCOSE,RANDOM 80 mg/dL (70-110); POTASSIUM 3.3 mmol/L (3.5-5.1); SODIUM SERUM 141 mmol/L (136-145); UREA NITROGEN, BLOOD 19 mg/dL (7-18)
[2024-02-14] MEDS: APIXABAN 5 MG TABLET PO SCH (17:52)
[2024-02-15 03:03] VITALS: BP 114/59; PULSE 87; RESP 18; TEMP 98.1; O2SAT 94
[2024-02-15 08:04] LABS: ANION GAP 8 mmol/L (8-16); CALCIUM, TOTAL 8.5 mg/dL (8.8-10.5); CARBON DIOXIDE 30 mmol/L (22-29); CHLORIDE 102 mmol/L (98-107); CREATININE 0.92 mg/dL (0.60-1.30); GLOMERULAR FILTR. RATE CALC > 60 mL/min (>60); GLUCOSE,RANDOM 82 mg/dL (70-110); SODIUM SERUM 140 mmol/L (136-145); UREA NITROGEN, BLOOD 19 mg/dL (7-18)
[2024-02-15 08:10] LABS: HEMATOCRIT 26.3 % (36-46); HEMOGLOBIN 8.5 g/dL (12.0-16.0); MEAN CORPUSCULAR HEMOGLOBIN 31.4 pg (26.0-34.0); MEAN CORPUSCULAR HGB CONC 32.5 G/dL (31.0-37.0); MEAN CORPUSCULAR VOLUME 97 fL (80-100); PLATELET COUNT (AUTO) 721 K/uL (150-450); RED BLOOD CELL COUNT(AUTO) 2.72 MIL/uL (4.00-5.20); RED CELL DISTRIBUTION WIDTH 20.5 % (11.5-14.5); WHITE BLOOD COUNT (AUTO) 15.4 K/uL (4.5-11.0)
[2024-02-15 08:24] VITALS: BP 105/59; PULSE 83; RESP 19; TEMP 98.6; O2SAT 96
[2024-02-15 08:54] LABS: BAND NEUTROPHILS % (MANUAL) 7 % (0-5); LYMPHOCYTES % (MANUAL) 13 % (22-44); MONOCYTES % (MANUAL) 7 % (2-9); SEGMENTED NEUTROPHILS % 73 % (40-70); TOTAL CELLS COUNTED 100
[2024-02-15 08:55] LABS: PLATELET MORPHOLOGY COMMENT LARGE PLTS PRESENT; RBC MORPHOLOGY COMMENT ABNORMAL RBC MORPH
[2024-02-15 12:08] VITALS: BP 95/47; PULSE 68; RESP 19; TEMP 98.2; O2SAT 97
[2024-02-15 15:31] VITALS: BP 122/50; PULSE 82; RESP 20; TEMP 98; O2SAT 92
[2024-02-15 20:00] VITALS: BP 111/57; PULSE 86; RESP 18; TEMP 98.2; O2SAT 96
[2024-02-16 00:18] VITALS: BP 103/54; PULSE 81; RESP 18; TEMP 98.1; O2SAT 95
[2024-02-16 05:35] VITALS: BP 106/59; PULSE 88; RESP 18; TEMP 98.4; O2SAT 95
[2024-02-16 08:02] VITALS: BP 100/44; PULSE 79; RESP 19; TEMP 97.8; O2SAT 93
[2024-02-16] MEDS: OxyCODONE HCL/ACETAMINOPHEN 5-325 MG TABLET PO PRN (08:06)
[2024-02-16 11:41] VITALS: BP 94/47; PULSE 70; RESP 18; TEMP 97.6; O2SAT 96
[2024-02-16 15:16] VITALS: BP 92/59; PULSE 72; RESP 18; TEMP 97.7; O2SAT 97
[2024-02-16 20:05] VITALS: BP 111/46; PULSE 87; RESP 18; TEMP 98.2; O2SAT 96
[2024-02-16] MEDS: LevETIRAcetam 500 MG TABLET PO SCH (20:40)
[2024-02-16] MEDS: VALPROIC ACID 250 MG CAPSULE PO SCH (20:41)
[2024-02-17 00:11] VITALS: BP 98/60; PULSE 79; RESP 16; TEMP 98; O2SAT 96
[2024-02-17 05:44] VITALS: BP 104/59; PULSE 70; RESP 16; TEMP 98.1; O2SAT 97
[2024-02-17 06:34] LABS: BASOPHILS % (AUTO) 0.5 % (0.0-2.0); EOSINOPHILS % (AUTO) 0.9 % (1.0-6.0); HEMATOCRIT 29.7 % (36-46); HEMOGLOBIN 9.5 g/dL (12.0-16.0); LYMPHOCYTES # (AUTO) 1.5 K/uL (1.0-4.8); MEAN CORPUSCULAR HEMOGLOBIN 31.4 pg (26.0-34.0); MEAN CORPUSCULAR HGB CONC 31.8 G/dL (31.0-37.0); MEAN CORPUSCULAR VOLUME 99 fL (80-100); MONOCYTES # (AUTO) 1.8 K/uL (0.1-1.0); NEUTROPHILS # (AUTO) 10.5 K/uL (1.8-7.7); NEUTROPHILS % (AUTO) 74.6 % (40.0-70.0); RED BLOOD CELL COUNT(AUTO) 3.01 MIL/uL (4.00-5.20); RED CELL DISTRIBUTION WIDTH 22.8 % (11.5-14.5)
[2024-02-17 07:08] LABS: PLATELET COUNT (AUTO) 820 K/uL (150-450)
[2024-02-17 07:29] LABS: ANION GAP 9 mmol/L (8-16); CALCIUM, TOTAL 8.5 mg/dL (8.8-10.5); CARBON DIOXIDE 27 mmol/L (22-29); CHLORIDE 100 mmol/L (98-107); CREATININE 0.85 mg/dL (0.60-1.30); GLOMERULAR FILTR. RATE CALC > 60 mL/min (>60); GLUCOSE,RANDOM 75 mg/dL (70-110); POTASSIUM 3.9 mmol/L (3.5-5.1); SODIUM SERUM 136 mmol/L (136-145); UREA NITROGEN, BLOOD 21 mg/dL (7-18)
[2024-02-17 08:18] VITALS: BP 113/68; PULSE 98; RESP 14; TEMP 97.8; O2SAT 96
[2024-02-17 08:31] LABS: RBC MORPHOLOGY COMMENT ABNORMAL RBC MORPH
[2024-02-17] MEDS: VALPROIC ACID 250 MG CAPSULE PO SCH (09:26)
[2024-02-17] MEDS: PANTOPRAZOLE SODIUM 40 MG DR TABLET PO SCH (09:26)
[2024-02-17] MEDS ORDERED: ACET325T51 PO (10:52)
[2024-02-17] MEDS ORDERED: VALP250C48 PO ×2 (10:52)
[2024-02-17] MEDS ORDERED: ALBU2.5V39 NEB (10:52)
[2024-02-17] MEDS ORDERED: IPRA0.2S49 NEB (10:52)
[2024-02-17] MEDS ORDERED: APIX5TAB PO (10:52)
[2024-02-17] MEDS ORDERED: MELA5TAB40 PO (10:52)
[2024-02-17] MEDS ORDERED: PIPE3.3772 IV (10:52)
[2024-02-17] MEDS ORDERED: CHLO1TOW TP (10:52)
[2024-02-17] MEDS ORDERED: LEVE-71 PO (10:52)
[2024-02-17] MEDS ORDERED: MIDO5TAB29 PO (10:52)
[2024-02-17] MEDS ORDERED: PERCT PO (10:52)
[2024-02-17] MEDS ORDERED: PANT-31 PO (10:52)
[2024-02-17] MEDS ORDERED: LORA2I IVP (10:52)
[2024-02-17] MEDS ORDERED: ASPI-1450 PO (10:52)
[2024-02-17] MEDS ORDERED: PERID15L MM (10:52)
[2024-02-17 12:02] VITALS: BP 98/68; PULSE 79; RESP 16; TEMP 98; O2SAT 93
[2024-02-17 16:20] VITALS: BP 97/54; PULSE 85; RESP 18; TEMP 98.2; O2SAT 97
[2024-02-17 20:09] VITALS: BP 109/51; PULSE 86; RESP 18; TEMP 97.4; O2SAT 95
[2024-02-18 00:14] VITALS: BP 109/52; PULSE 75; RESP 18; TEMP 98.6; O2SAT 98
[2024-02-18 04:21] VITALS: BP 97/56; PULSE 77; RESP 17; TEMP 97.3; O2SAT 98
[2024-02-18 06:26] LABS: BASOPHILS % (AUTO) 0.3 % (0.0-2.0); EOSINOPHILS % (AUTO) 0.6 % (1.0-6.0); HEMATOCRIT 28.5 % (36-46); HEMOGLOBIN 9.3 g/dL (12.0-16.0); LYMPHOCYTES % (AUTO) 12.4 % (22.0-44.0); MEAN CORPUSCULAR HGB CONC 32.7 G/dL (31.0-37.0); MEAN CORPUSCULAR VOLUME 98 fL (80-100); MONOCYTES # (AUTO) 1.8 K/uL (0.1-1.0); MONOCYTES % (AUTO) 11.3 % (2.0-9.0); NEUTROPHILS # (AUTO) 12.3 K/uL (1.8-7.7); NEUTROPHILS % (AUTO) 75.4 % (40.0-70.0); RED BLOOD CELL COUNT(AUTO) 2.92 MIL/uL (4.00-5.20); RED CELL DISTRIBUTION WIDTH 23.4 % (11.5-14.5); WHITE BLOOD COUNT (AUTO) 16.3 K/uL (4.5-11.0)
[2024-02-18 06:39] LABS: INR 1.2 (0.9-1.1); PROTHROMBIN TIME 12.1 SEC (9.4-11.6)
[2024-02-18 06:49] LABS: ALANINE AMINOTRANSFERASE 24 U/L (12-78); ALKALINE PHOSPHATASE 136 U/L (46-116); ANION GAP 11 mmol/L (8-16); ASPARTATE AMINOTRANSFERASE 34 U/L (15-37); BILIRUBIN,TOTAL 0.4 mg/dL (0.1-1.0); CALCIUM, TOTAL 8.9 mg/dL (8.8-10.5); CARBON DIOXIDE 27 mmol/L (22-29); CHLORIDE 101 mmol/L (98-107); CREATININE 0.84 mg/dL (0.60-1.30); GLOMERULAR FILTR. RATE CALC > 60 mL/min (>60); GLUCOSE,RANDOM 78 mg/dL (70-110); POTASSIUM 4.2 mmol/L (3.5-5.1); SODIUM SERUM 139 mmol/L (136-145); TOTAL PROTEIN, SERUM 6.7 g/dL (6.4-8.2); UREA NITROGEN, BLOOD 22 mg/dL (7-18)
[2024-02-18 07:09] LABS: PLATELET COUNT (AUTO) 820 K/uL (150-450)
[2024-02-18 07:10] LABS: PLATELET MORPHOLOGY COMMENT LARGE PLTS PRESENT; RBC MORPHOLOGY COMMENT ABNORMAL RBC MORPH
[2024-02-18 08:00] VITALS: BP 96/48; PULSE 87; RESP 16; TEMP 97.5; O2SAT 96
[2024-02-18 11:33] VITALS: BP 104/66; PULSE 99; RESP 16; TEMP 97.1; O2SAT 98
[2024-02-18 15:50] VITALS: BP 94/58; PULSE 80; RESP 18; TEMP 97.6; O2SAT 98
[2024-02-18 20:03] VITALS: BP 108/50; PULSE 77; RESP 18; TEMP 97; O2SAT 97
[2024-02-19] VITALS (7 sets, daily range): BP systolic 84–121; BP diastolic 48–77; PULSE 72–97; RESP 18; TEMP 97.2–98; O2SAT 96–97
[2024-02-19 07:41] LABS: BASOPHILS % (AUTO) 0.4 % (0.0-2.0); EOSINOPHILS % (AUTO) 0.8 % (1.0-6.0); HEMATOCRIT 26.5 % (36-46); HEMOGLOBIN 8.4 g/dL (12.0-16.0); LYMPHOCYTES # (AUTO) 1.5 K/uL (1.0-4.8); LYMPHOCYTES % (AUTO) 11.2 % (22.0-44.0); MEAN CORPUSCULAR HEMOGLOBIN 31.8 pg (26.0-34.0); MEAN CORPUSCULAR HGB CONC 31.7 G/dL (31.0-37.0); MEAN CORPUSCULAR VOLUME 100 fL (80-100); MONOCYTES # (AUTO) 1.4 K/uL (0.1-1.0); MONOCYTES % (AUTO) 10.3 % (2.0-9.0); NEUTROPHILS # (AUTO) 10.4 K/uL (1.8-7.7); NEUTROPHILS % (AUTO) 77.3 % (40.0-70.0); RED BLOOD CELL COUNT(AUTO) 2.64 MIL/uL (4.00-5.20); RED CELL DISTRIBUTION WIDTH 23.7 % (11.5-14.5); WHITE BLOOD COUNT (AUTO) 13.4 K/uL (4.5-11.0)
[2024-02-19 07:43] LABS: PLATELET COUNT (AUTO) 819 K/uL (150-450)
[2024-02-20 03:32] VITALS: BP 98/61; PULSE 78; RESP 19; TEMP 97.8; O2SAT 97
[2024-02-20 11:24] VITALS: BP 103/61; PULSE 76; RESP 16; TEMP 98.2; O2SAT 96
[2024-02-20 16:24] VITALS: BP 99/44; PULSE 82; RESP 15; TEMP 97; O2SAT 95
[2024-02-20 19:46] VITALS: BP 108/49; PULSE 72; RESP 17; TEMP 98.4; O2SAT 95
[2024-02-21 04:37] VITALS: BP 107/67; PULSE 62; RESP 18; TEMP 98; O2SAT 96
[2024-02-21 05:26] LABS: GLUCOMETER DEV NAME(LOC) 4E.2; GLUCOSE,POINT OF CARE 102 MG/DL (70-110)
[2024-02-21 07:43] LABS: BASOPHILS % (AUTO) 0.4 % (0.0-2.0); EOSINOPHILS % (AUTO) 0.5 % (1.0-6.0); HEMATOCRIT 27.3 % (36-46); HEMOGLOBIN 8.7 g/dL (12.0-16.0); LYMPHOCYTES # (AUTO) 1.1 K/uL (1.0-4.8); LYMPHOCYTES % (AUTO) 5.4 % (22.0-44.0); MEAN CORPUSCULAR HEMOGLOBIN 32.1 pg (26.0-34.0); MEAN CORPUSCULAR VOLUME 101 fL (80-100); MONOCYTES # (AUTO) 2.2 K/uL (0.1-1.0); MONOCYTES % (AUTO) 11.1 % (2.0-9.0); NEUTROPHILS # (AUTO) 16.4 K/uL (1.8-7.7); NEUTROPHILS % (AUTO) 82.6 % (40.0-70.0); PLATELET COUNT (AUTO) 720 K/uL (150-450); RED BLOOD CELL COUNT(AUTO) 2.71 MIL/uL (4.00-5.20); RED CELL DISTRIBUTION WIDTH 24.9 % (11.5-14.5); WHITE BLOOD COUNT (AUTO) 19.9 K/uL (4.5-11.0)
[2024-02-21 07:46] LABS: RBC MORPHOLOGY COMMENT ABNORMAL RBC MORPH
[2024-02-21 07:59] LABS: INR 1.3 (0.9-1.1); PROTHROMBIN TIME 13.7 SEC (9.4-11.6)
[2024-02-21 08:08] LABS: ALANINE AMINOTRANSFERASE 21 U/L (12-78); ALKALINE PHOSPHATASE 151 U/L (46-116); ANION GAP 7 mmol/L (8-16); ASPARTATE AMINOTRANSFERASE 29 U/L (15-37); BILIRUBIN,TOTAL 0.5 mg/dL (0.1-1.0); CALCIUM, TOTAL 8.6 mg/dL (8.8-10.5); CARBON DIOXIDE 29 mmol/L (22-29); CHLORIDE 106 mmol/L (98-107); CREATININE 0.76 mg/dL (0.60-1.30); GLOMERULAR FILTR. RATE CALC > 60 mL/min (>60); GLUCOSE,RANDOM 92 mg/dL (70-110); POTASSIUM 3.8 mmol/L (3.5-5.1); SODIUM SERUM 142 mmol/L (136-145); TOTAL PROTEIN, SERUM 6.7 g/dL (6.4-8.2); UREA NITROGEN, BLOOD 22 mg/dL (7-18)
[2024-02-21 08:22] VITALS: BP 110/53; PULSE 85; RESP 16; TEMP 98.3; O2SAT 97
[2024-02-21 14:32] VITALS: BP 92/67; PULSE 91; RESP 18; TEMP 97.8; O2SAT 95
[2024-02-21 18:51] VITALS: BP 101/54; PULSE 86; RESP 17; TEMP 97.6; O2SAT 96
[2024-02-21 20:00] VITALS: BP 98/52; PULSE 76; RESP 18; TEMP 97.2; O2SAT 99
[2024-02-22 03:56] VITALS: BP 100/49; PULSE 87; RESP 18; TEMP 97.2; O2SAT 96
[2024-02-22 08:20] VITALS: BP 111/58; PULSE 100; RESP 19; TEMP 99.3; O2SAT 97
[2024-02-22 16:26] VITALS: BP 126/55; PULSE 105; RESP 18; TEMP 100.5; O2SAT 97
[2024-02-22 19:00] VITALS: PULSE 100; TEMP 98.8
[2024-02-22 20:00] VITALS: BP 103/66; PULSE 99; RESP 20; TEMP 98.2; O2SAT 97
[2024-02-23 05:00] VITALS: BP 109/72; PULSE 95; RESP 20; TEMP 98.6; O2SAT 96
[2024-02-23 07:27] LABS: BASOPHILS % (AUTO) 0.6 % (0.0-2.0); EOSINOPHILS % (AUTO) 0.8 % (1.0-6.0); HEMATOCRIT 28.7 % (36-46); HEMOGLOBIN 9.1 g/dL (12.0-16.0); LYMPHOCYTES # (AUTO) 1.5 K/uL (1.0-4.8); LYMPHOCYTES % (AUTO) 13.8 % (22.0-44.0); MEAN CORPUSCULAR HEMOGLOBIN 32.3 pg (26.0-34.0); MEAN CORPUSCULAR HGB CONC 31.7 G/dL (31.0-37.0); MEAN CORPUSCULAR VOLUME 102 fL (80-100); MONOCYTES # (AUTO) 1.4 K/uL (0.1-1.0); MONOCYTES % (AUTO) 12.9 % (2.0-9.0); NEUTROPHILS # (AUTO) 7.9 K/uL (1.8-7.7); NEUTROPHILS % (AUTO) 71.9 % (40.0-70.0); RED BLOOD CELL COUNT(AUTO) 2.82 MIL/uL (4.00-5.20); RED CELL DISTRIBUTION WIDTH 24.4 % (11.5-14.5); WHITE BLOOD COUNT (AUTO) 10.9 K/uL (4.5-11.0)
[2024-02-23 07:33] LABS: PLATELET COUNT (AUTO) 760 K/uL (150-450)
[2024-02-23 07:49] LABS: ALANINE AMINOTRANSFERASE 33 U/L (12-78); ALKALINE PHOSPHATASE 167 U/L (46-116); ANION GAP 8 mmol/L (8-16); ASPARTATE AMINOTRANSFERASE 33 U/L (15-37); BILIRUBIN,TOTAL 0.5 mg/dL (0.1-1.0); CALCIUM, TOTAL 8.8 mg/dL (8.8-10.5); CARBON DIOXIDE 30 mmol/L (22-29); CHLORIDE 106 mmol/L (98-107); CREATININE 0.75 mg/dL (0.60-1.30); GLOMERULAR FILTR. RATE CALC > 60 mL/min (>60); GLUCOSE,RANDOM 80 mg/dL (70-110); SODIUM SERUM 144 mmol/L (136-145); TOTAL PROTEIN, SERUM 7.5 g/dL (6.4-8.2); UREA NITROGEN, BLOOD 21 mg/dL (7-18)
[2024-02-23 08:10] VITALS: BP 94/58; PULSE 83; RESP 18; TEMP 97.7; O2SAT 98
[2024-02-23 19:40] VITALS: BP 119/65; PULSE 98; RESP 19; TEMP 99.1; O2SAT 95
[2024-02-24 04:21] VITALS: BP 104/52; PULSE 84; RESP 20; TEMP 97.7; O2SAT 97
[2024-02-24 08:01] VITALS: BP 118/71; PULSE 87; RESP 20; TEMP 97.6; O2SAT 97
[2024-02-24 09:07] VITALS: BP 130/88; PULSE 88; TEMP 97.6; O2SAT 96
== END 2024-02-24 15:15 | DRG 870 ==
LOC: EMS 21:50 → EDH 22:21 → ICU 23:20 → 5S 02-08 18:53 → 4E 02-20 23:02
PROVIDERS: ADMIT Family Medicine; ATTEND Family Medicine
PROC: 0BH17EZ Insertion of Endotracheal Airway into Trachea, Via Natural or Artificial Opening (ICD-10-PCS; 2024-01-28)
PROC: 5A1955Z Respiratory Ventilation, Greater than 96 Consecutive Hours (ICD-10-PCS; 2024-01-28)
PROC: 4A00X4Z Measurement of Central Nervous Electrical Activity, External Approach (ICD-10-PCS; 2024-01-31)
PROC: 05HB33Z Insertion of Infusion Device into Right Basilic Vein, Percutaneous Approach (ICD-10-PCS; 2024-02-07)
PROC: 30233N1 Transfusion of Nonautologous Red Blood Cells into Peripheral Vein, Percutaneous Approach (ICD-10-PCS; principal; 2024-02-09)
DX: A41.9 Sepsis, unspecified organism (principal); G92.8 Other toxic encephalopathy; I26.99 Other pulmonary embolism without acute cor pulmonale; I46.9 Cardiac arrest, cause unspecified; J15.69 Pneumonia due to other Gram-negative bacteria; J96.01 Acute respiratory failure with hypoxia; E43 Unspecified severe protein-calorie malnutrition; N17.9 Acute kidney failure, unspecified; R57.9 Shock, unspecified; E87.20 Acidosis, unspecified; E87.4 Mixed disorder of acid-base balance; I24.89 Other forms of acute ischemic heart disease; D75.839 Thrombocytosis, unspecified; G40.909 Epilepsy, unspecified, not intractable, without status epilepticus; E16.2 Hypoglycemia, unspecified; F20.9 Schizophrenia, unspecified; F41.9 Anxiety disorder, unspecified; R13.10 Dysphagia, unspecified; Z79.01 Long term (current) use of anticoagulants; Z68.20 Body mass index [BMI] 20.0-20.9, adult
CPT/HCPCS: 36245; 36569; 36600; 70496; 70498; 70544; 70551; 70553; 71045; 71275; 76937; 80048; 80053; 80164; 81001; 82140; 82271; 82805; 82947; 82962; 83605; 83615; 83735; 84100; 84132; 84145; 84484; 85025; 85610; 85730; 86850; 86900; 86901; 86923; 87040; 87070; 87081; 87205; 87324; 87449; 87481; 92526; 92610; 93005; 93306; 94002; 94003; 95816; 97110; 97163; 97167; 97530; 97535; 99285; C9113; G0378; J0696; J0712; J1644; J1815; J2060; J2250; J2543; J2704; J3010; J3480; J3490; J7030; J7040; J7050; J7060; J7120; P9016; P9047; 36415-L1; 36415-TC; 70450; 70450-TC; X7700